=== PATIENT | female | born 1950 | race Caucasian/White ===

== ENCOUNTER 2022-02-03 03:01 | Outpatient (CLI) | payer MEDICARE, SELFPAY ==
[2022-02-03 09:47] LABS: Abs Immature Grans 0.03 10^3/uL (0.0-0.06); Absolute Eosinophil Count 0.42 10^3/uL (0.0-0.7); Absolute Monocyte Count 0.85 10^3/uL (0.1-0.8); Basophils % 1.4; Eosinophils % 3.8; HCT 50.3 % (36.0-46.0); Immature Grans % 0.3; Lymphocytes % 20.8; MCH 31.8 pg (27.0-33.0); MCHC 33.8 % (32.0-36.0); MPV 9.7 fL (8.0-11.0); Monocytes % 7.7; Platelet Count 251 10^3/uL (130-400); RBC 5.35 10^6/uL (3.93-5.22); RDW 11.9 % (11.7-14.6); RDW-SD 41.3 fL; WBC 11.04 10^3/uL (4.4-10.8)
[2022-02-03 09:50] LABS: Absolute Basophil Count 0.15 10^3/uL (0.0-0.2); Absolute Neutrophil Count 7.29 10^3/uL (1.2-6.7)
[2022-02-03 11:22] LABS: Vitamin D 25 Total 53.1 ng/mL (30-100)
[2022-02-03 11:27] LABS: ALT 47 U/L (14-59); AST 46 U/L (15-37); Albumin 3.8 g/dL (3.4-5.0); Alkaline Phosphatase 99 U/L (46-116); Anion Gap 6.6 mmol/L (3-11); BUN 12 mg/dL (7-18); Bilirubin, Total 1.4 mg/dL (0.2-1.0); CO2 31.4 mmol/L (21.0-32.0); CREATININE 0.7 mg/dL (0.55-1.02); Calcium 8.9 mg/dL (8.5-10.1); Calculated LDL 137 mg/dL (<100); Chloride 102 mmol/L (98-107); Cholesterol 232 mg/dL (<200); Glucose 103 mg/dL (74-106); HDL Cholesterol 70 mg/dL (40-60); Magnesium 1.9 mg/dL (1.8-2.4); Potassium 4.4 mmol/L (3.5-5.1); Sodium 140 mmol/L (136-145); TSH 1.99 uIU/mL (0.36-3.74); Total Protein 7.8 g/dL (6.4-8.2); Triglyceride 128 mg/dL (<150); Vitamin B12 374 pg/mL (193-986)
== END 2022-02-03 03:02 | disposition home or self-care (01) ==
LOC: LBO 03:02
PROVIDERS: Visit Provider Internal Medicine
DX: I10 Essential (primary) hypertension (principal); K74.69 Other cirrhosis of liver; E55.9 Vitamin D deficiency, unspecified
CPT/HCPCS: 36415; 80053; 80061; 82306; 82607; 83735; 84443; 85025

== ENCOUNTER 2022-02-11 13:48 | Emergency (ER) | payer MEDICARE, SELFPAY ==
[2022-02-11] VITALS (33 sets, daily range): BP systolic 161–226; BP diastolic 77–118; PULSE 92; RESP 10–28; TEMP 37.1; O2SAT 94–99
--- NOTE | 2022-02-11 13:45 | RT.EKG_ITS ---
APPROVED REPORT Exam: Resting ECG Reason for Exam: HYPERTENSION Patient Location: E HR:91 bpm ECG Measurements Heart Rate 91 AXIS NV 185 P 147 QRSd 103 QRS 62 QT 415 T 82 QTc 511 Conclusion Sinus rhythm. Probable left atrial enlargement Nonspecific ST changes Prolonged QT interval...QTc >500mS
--- NOTE | 2022-02-11 14:15 | DI.CT_ITS ---
Exam(s) CT HEAD WO EXAM: CT HEAD WO CLINICAL HISTORY: R arm and chest pain, HTN. TECHNIQUE: Imaging Protocol: Axial computed tomography images with coronal and sagittal reformatted images were created and reviewed COMPARISON: No exams were available for comparison FINDINGS: There are no skull fractures nor fluid in the visualized paranasal sinuses. There is no evidence of intracranial hemorrhage, mass effect, or shift of midline structures. There are no extra-axial fluid collections. The ventricles are not enlarged or shifted and there is no blo od within the ventricular system nor within the basal cisterns. There is calcification in the vertebral arteries noted at the skull base. IMPRESSION: No acute intracranial findings on this noninfused CT scan of the brain. Vascular calcification noted. Indicated follow-up MRI can be performed. RADIATION DOSE DELIVERED: 650.17mGy.cm Total DLP DATA REPOSITORY: All CT scans at this facility are submitted to the National Radiology Data Registry (NRDR) Dose Index Registry (DIR) with the [employer] (A[employer]). RADIATION OPTIMIZATION: All CT scans at this facility use at least one of these dose optimization te chniques: automated exposure control; mA and/or kV adjustment per patient size (includes targeted exa ms where dose is matched to clinical indication); or iterative reconstruction.
--- NOTE | 2022-02-11 14:24 | ED.GENADUL_ITS ---
Discharge Plan Disposition Patient Disposition: STILL A PATIENT Condition: Stable Discharge Details Clinical Impression: Hypertension Primary Care Provider: Unknown,Unknown ED Provider: Jewel Tucker Home Meds and New Rx's Prescriptions: Continued carvedilol 12.5 mg tablet PO BID 0RF Breo Ellipta 100-25 mcg/dose blister with device 1 inh inhalation DAILY AM 0RF ibuprofen [Advil] 200 mg Tablet 200 mg PO DAILY AM 0RF Discharge Instructions Instructions: Hypertension (ED) Additional Instructions: Our care managers will arrange a follow-up for you for recheck in clinic at the [facility]. Continue medications including carvedilol at 12.5 mg dose. Minimal salt in the diet. Continue your daily stress reduction/relaxation. Return to the emergency room for any acute concerns. Medical Decision Making This is a 71-year-old female with a history of hypertension. She is followed primarily at the [facility]. She presents today for increased blood pressure at home as well as anxiety regarding this. She had been seen by primary care and her carvedilol was increased from 6.25 to 12.5 mg per dose BID. She has now taken 2 doses of this. Blood pressures at home approximately 1 50-1 60 systolic. He also noted after cleaning her deck that she has right arm and upper chest achy discomfort. On exam the patient's blood pressure is elevated approximately 220/110. She is somewhat anxious on exam. She will note increased anxiety since moving into her [id number]'s house. Diagnosis includes anxiety, hypertension, must exclude underlying ACS or CVA. Patient referred for screening blood work or EKG, chest x-ray (which she deferred) and CT scan of the head. She is given 2.5 mg of Ativan for anxiolysis, muscle relaxant. At change of shift the patient will be signed out to the oncoming physician, Dr. Scott. Please see his note regarding details of the final impression and disposition. HPI General Mode of arrival: ambulatory . Date/Time Provider Initiated Documentation: 02/11/22 13:51 . Limitations to Documentation: no limitations . Information obtained by: patient . History of Present Illness 71 year old F presents to the emergency department with the chief complaint of Elevated blood pressure, right shoulder ache, described as moderate, Quality is described as dull and constant, and is localized to the chest, right and upper extremity. Patient reports no radiation. Patient started experiencing this day(s) and it has been intermittent. improves with No relieving factors improve symptom(s), No exacerbating factors reported . Patient notes denies chest pain, shortness of breath, syncope and weakness. Patient did receive the following treatments prior to arrival, none Related Data Home Medications Medication Instructions Recorded Confirmed carvedilol 12.5 mg tablet mg PO BID 02/11/22 fluticasone furoate 100 1 inh INHALATION DAILY AM 02/11/22 02/11/22 mcg-vilanterol 25 mcg/dose inhalation powder (Breo Ellipta) ibuprofen 200 mg tablet (Advil) 200 mg PO DAILY AM 02/11/22 02/11/22 Allergies Allergy/AdvReac Type Severity Reaction Status Date / Time acetaminophen Allergy Unknown Unverified 02/11/22 14:43 Sulfa (Sulfonamide Allergy Unknown Unverified 02/11/22 14:43 Antibiotics) General Stated Complaint: GenMedical KAREN: 2 Review of Systems Narrative: On day 2 of increase of carvedilol to 12.5 mg. No headache. No visual changes. Denies chest pain. 8 systems reviewed and otherwise negative PFSH All Active Problems (Updated 02/11/22 @ 14:55 by Jewel Tucker MD) Hypertension (Chronic) Social History Smoking/Tobacco Use Status: Current every day Tobacco Type: cigarettes Smoking risk assessment performed?: Yes Alcohol Intake: never Drug use: Never Substance use type: does not use Do you feel safe at home: Yes Do you feel safe in your relationship?: Yes Exam Narrative Exam Narrative: GEN: awake, alert, oriented 3. Pleasant, well groomed, interactive. HEAD: Normocephalic, atraumatic ENT: Mucous membranes moist, oropharynx unremarkable, External ear exam unremarkable EYES: PERRL, EOMI NECK: Full ROM, no AVELINA, no menigismus CHEST/RESP: Nontender, clear to auscultation bilateral, no wheeze/rhonchi/rales CARDIOVASCULAR: RRR, no murmur, rub levi. 2+ Rad pulse bilateral ABDOMEN: Soft, nontender, no mass. +Bowel sounds EXT: Full ROM, no edema, no rash Neuro: Grossly normal neurologic exam, conversant, interactive. Psych: Speech fluent, thoughts congruent, affect mildly anxious Course Vital Signs Vital signs: Vital Signs Temperature 37.1 C 02/11/22 13:53 Pulse 92 H 02/11/22 13:53 Respiratory Rate 16 02/11/22 13:53 Blood Pressure 226/118 H 02/11/22 13:53 Pulse Oximetry 95 02/11/22 13:53 Temperature 37.1 C 02/11/22 13:53 Pulse 92 H 02/11/22 13:53 Respiratory Rate 16 02/11/22 13:53 Blood Pressure 226/118 H 02/11/22 13:53 Blood Pressure Position Supine 02/11/22 13:53 Pulse Oximetry 95 02/11/22 13:53 Oxygen Delivery Method Room Air 02/11/22 13:53 Oxygen Flow Rate 0 02/11/22 13:53 Pain Level 0 02/11/22 13:53
[2022-02-11 14:30] LABS: Abs Immature Grans 0.04 10^3/uL (0.0-0.06); Absolute Basophil Count 0.15 10^3/uL (0.0-0.2); Absolute Eosinophil Count 0.39 10^3/uL (0.0-0.7); Absolute Lymphocyte Count 2.81 10^3/uL (1.2-3.4); Absolute Monocyte Count 0.82 10^3/uL (0.1-0.8); Basophils % 1.3; Eosinophils % 3.4; HCT 47.9 % (36.0-46.0); HGB 16.5 g/dL (11.2-15.7); Immature Grans % 0.3; Lymphocytes % 24.4; MCH 31.7 pg (27.0-33.0); MCHC 34.4 % (32.0-36.0); MCV 92 fL (80-95); MPV 9.8 fL (8.0-11.0); Monocytes % 7.1; Neutrophils % 63.5; Platelet Count 286 10^3/uL (130-400); RDW 11.9 % (11.7-14.6); RDW-SD 40.2 fL
[2022-02-11 14:52] LABS: ALT 53 U/L (14-59); AST 56 U/L (15-37); Albumin 3.8 g/dL (3.4-5.0); Alkaline Phosphatase 112 U/L (46-116); Anion Gap 9.6 mmol/L (3-11); BUN 11 mg/dL (7-18); Bilirubin, Total 0.9 mg/dL (0.2-1.0); CO2 27.4 mmol/L (21.0-32.0); CREATININE 0.7 mg/dL (0.55-1.02); Chloride 103 mmol/L (98-107); Glucose 124 mg/dL (74-106); Magnesium 2.1 mg/dL (1.8-2.4); Potassium 4.4 mmol/L (3.5-5.1); Sodium 140 mmol/L (136-145); Troponin I < 50 ng/L (<or=60)
--- NOTE | 2022-02-11 14:59 | NUR.NOTE ---
Nursing Note: PT INFO GIVEN TO CARE MANAGEMENT TO FOLLOW UP WITH PCP IN A WEEK FOR RECHECK OF KIDNEY FUNCTION. DENNISE, ED
--- NOTE | 2022-02-11 15:51 | W.EDPROG ---
Date of service: 02/11/22 Time of Service: 15:52 Medical Decision Making Resting comfortably no acute distress. No chest pain or shortness of breath. Labs and imaging unremarkable. Patient saw her primary care doctor yesterday and had her hypertensive medications adjusted, likely subtherapeutic at this time. Home care instructions and strict return precautions given for any worsening symptomatology. Specifically shortness of breath chest pain syncope headache nausea vomiting or neurologic symptoms. Patient understands and is comfortable with this plan. Sign Out Sign Out Data: Sign Out Comment: Followup Labs, CT report. Last updated by Jewel Tucker MD at 02/11/22 14:59 Discharge Plan Disposition Patient Disposition: HOME Condition: Improving Discharge Details Clinical Impression: Hypertension Primary Care Provider: Unknown,Unknown ED Provider: Henri Jackson Home Meds and New Rx's Prescriptions: Continued carvedilol 12.5 mg tablet PO BID 0RF Breo Ellipta 100-25 mcg/dose blister with device 1 inh inhalation DAILY AM 0RF ibuprofen [Advil] 200 mg Tablet 200 mg PO DAILY AM 0RF Discharge Instructions Instructions: Hypertension (ED) Additional Instructions: Our care managers will arrange a follow-up for you for recheck in clinic at the [facility]. Continue medications including carvedilol at 12.5 mg dose. Minimal salt in the diet. Continue your daily stress reduction/relaxation. Return to the emergency room for any acute concerns.
--- NOTE | 2022-02-14 10:46 | CMACTNOTE_ITS ---
- If Service Date Differs Date of service: 02/14/22 Time of Service: 10:46 Care Management Activity Note Leonarda is seen in the ED for hypertension. ED provider requests that CM help to arrange a follow up appointment for Leonarda with her PCP. A phone conversation with Leonarda reveals she has already contacted her PCP - (Mita Morales MD, at the [facility] - and scheduled a follow up appointment for February. CM discusses transfer of her care to a health center closer to [place], [place], where Leonarda is now residing, but Leonarda's preference is to continue to be seen at the [facility]
== END 2022-02-11 16:15 | disposition home or self-care (01) ==
PROVIDERS: Emergency Medicine; Emergency Provider Emergency Medicine
DX: R07.9 Chest pain, unspecified (principal); I10 Essential (primary) hypertension; M79.601 Pain in right arm
CPT/HCPCS: 36415; 80053; 93005; 99284; 70450; 83735; 84484; 85025; 93010

== ENCOUNTER 2025-03-21 08:51 | Inpatient (IN) | payer MEDICARE, SELFPAY ==
[2025-03-21] VITALS (34 sets, daily range): BP systolic 94–158; BP diastolic 38–78; PULSE 72–93; RESP 5–35; TEMP 36.2–36.6; O2SAT 82–100
--- NOTE | 2025-03-21 08:45 | RT.EKG_ITS ---
APPROVED REPORT Exam: Resting ECG Reason for Exam: Dyspnea, COPD exacerbation Patient Location: E HR:129 bpm ECG Measurements Heart Rate 129 AXIS VA [id number] P [id number] QRSd 114 QRS 65 QT 406 T 51 QTc 595 Conclusion irreg A-activity Paired ventricular premature complexes...sequence of 2 V complexes Prolonged QT interval...QTc >500mS significant artifact
[2025-03-21] MEDS: Albuterol/Ipratropium 3 ML UPD VIAL UPD ×2 (09:00→17:11)
--- NOTE | 2025-03-21 09:00 | DI.RAD_ITS ---
Exam(s) XR CHEST 2V PA LATERAL EXAM: XR CHEST 2V PA LATERAL CLINICAL HISTORY: Chest pain. TECHNIQUE: 2D digital imaging was performed. COMPARISON: No exams were available for comparison FINDINGS: 2 views: Heart size is normal. The mediastinum is not widened. No obvious infiltrates. There is a density in the right costophrenic angle which exhibits density in is probably extension the pericardiac fat pad or possibly a pericardial cyst. There is slight blunting of the right costophrenic angle which may indicate a small pleural effusion. IMPRESSION: Right cardiophrenic angle density as described above. If clinically indicated further study with CT scan can be performed. DATA REPOSITORY: RADIATION DOSE DELIVERED:
[2025-03-21 09:16] LABS: Abs Immature Grans 0.03 10^3/uL (0.0-0.06); Absolute Basophil Count 0.16 10^3/uL (0.0-0.2); Absolute Eosinophil Count 0.24 10^3/uL (0.0-0.7); Absolute Lymphocyte Count 3.75 10^3/uL (1.2-3.4); Absolute Neutrophil Count 7.95 10^3/uL (1.2-6.7); BE (Venous) 0 mmol/L (-2-3); Basophils % 1.2 %; Eosinophils % 1.8 %; HCO3 (Venous) 27 mmol/L (23-28); HCT 44.2 % (36.0-46.0); HGB 14.9 g/dL (11.2-15.7); Immature Grans % 0.2 %; Lymphocytes % 28.6 %; MCH 33.2 pg (27.0-33.0); MCHC 33.7 % (32.0-36.0); MCV 98 fL (80-95); MPV 9.7 fL (8.0-11.0); Monocytes % 7.6 %; Neutrophils % 60.6 %; O2 Sat (Venous) 64 %; Platelet Count 212 10^3/uL (130-400); RBC 4.49 10^6/uL (3.93-5.22); RDW 12.3 % (11.7-14.6); RDW-SD 44.8 fL; TCO2 (Venous) 24 mmol/L (24-29); WBC 13.12 10^3/uL (4.4-10.8); pCO2 (Venous) 54 mmHg (41-51); pO2 (Venous) 37 mmHg
--- NOTE | 2025-03-21 09:27 | W.ED.GENAD ---
Discharge Plan Disposition Patient Disposition: Admit to [facility] Condition: Serious Discharge Details Clinical Impression: Hypoxemia, Elevated troponin, Hypercarbia, ALEXIA (acute kidney injury), Acute exacerbation of chronic obstructive pulmonary disease Admit Date/Time: 03/21/25 11:55 Admit Provider: Pedro Luis Gregory Attending Provider: Pedro Luis Gregory Primary Care Provider: Mita Merlos ED Provider: Atul Peacock [facility] General Mode of arrival: EMS. Date/Time Provider Initiated Documentation: 03/21/25 08:59. Limitations to Documentation: no limitations. Information obtained by: patient. HPI Narrative: 74-year-old female smoker with history of COPD, Molina, here with shortness of breath. Patient notes developed sore throat and then cough about a week ago. Primary care ordered antibiotic which she has been taking for the past few days. Over the past few days she has had increased work of breathing. Shortness of breath is severe at times. She continues to have cough and has had fever. Cough is productive of white sputum. Patient has no chest pain but does note heaviness in her abdomen. She states that she has to stand up and lean over at times which helps with her breathing. Patient notes chronic unchanged lower extremity edema. No calf pain. Related Data Home Medications ?Medication ?Instructions ?Recorded ?Confirmed carvedilol 12.5 mg tablet 6.25 mg PO BID 02/11/22 03/21/25 fluticasone furoate 100 1 inh inhalation DAILY AM 02/11/22 03/21/25 mcg-vilanterol 25 mcg/dose inhalation powder (Breo Ellipta) doxycycline hyclate 100 mg capsule 100 mg PO BID 03/21/25 03/21/25 furosemide 20 mg tablet 20 mg PO .qotherday 03/21/25 03/21/25 spironolactone 25 mg tablet 25 mg PO .qotherday 03/21/25 03/21/25 Allergies Allergy/AdvReac Type Severity Reaction Status Date / Time acetaminophen Allergy Unknown Unverified 02/11/22 14:43 Sulfa (Sulfonamide Allergy Unknown Unverified 02/11/22 14:43 Antibiotics) General Stated Complaint: SOB KAREN: 2 Review of Systems All systems reviewed & are unremarkable except as noted in HPI and below Constitutional Constitutional: Reports fever(s) Respiratory Respiratory: Reports as per HPI Exam Const General: cooperative HENMT Mouth: moist mucous membranes Eyes Conjunctivae: normal conjunctivae Sclera: normal sclerae Neck Neck: trachea midline Resp Effort & Inspection: cough, labored, respiratory distress, tachypneic, tripod positioning and uses accessory muscles Auscultation: no rales, no rhonchi and wheezes expiratory wheezes Cardio Rate: regular rate and not tachycardic Rhythm: regular rhythm Heart Sounds: no murmurs GI Palpation: soft, not firm, no guarding, no masses, not rigid and nontender Skin General skin exam: no rashes or lesions noted Neuro General: patient alert, patient awake and tone normal Extrem General: no calf tenderness and edema (1+, non pitting) Laterality: bilateral Psych Appearance: grossly normal Mental Status: mental status grossly normal Course Vital Signs Vital signs: Vital Signs Pulse 76 03/21/25 08:53 Respiratory Rate 24 03/21/25 08:53 Pulse Oximetry 82 L 03/21/25 08:53 Pulse 83 03/21/25 09:21 Respiratory Rate 24 03/21/25 09:21 Respiratory Effort Short of Breath 03/21/25 09:16 Respiratory Depth Deep 03/21/25 09:16 Respiratory Pattern Normal 03/21/25 09:16 Pulse Oximetry 92 03/21/25 09:22 Oxygen Delivery Method Room Air 03/21/25 09:22 Oxygen Flow Rate 0 03/21/25 09:22 Lab/Test Results Lab/Test Results: 03/21/25 09:21 Blood Blood Culture - Pending 03/21/25 09:21 Blood Blood Culture - Pending Laboratory Tests Range/Units 03/21/25 09:09 WBC (4.4-10.8) 10^3/uL 13.12 H RBC (3.93-5.22) 10^6/uL 4.49 Hgb (11.2-15.7) g/dL 14.9 Hct (36.0-46.0) % 44.2 MCV (80-95) fL 98 H MCH (27.0-33.0) pg 33.2 H MCHC (32.0-36.0) % 33.7 RDW (11.7-14.6) % 12.3 Plt Count (130-400) 10^3/uL 212 MPV (8.0-11.0) fL 9.7 Immature Gran % % 0.2 Neutrophils % % 60.6 Lymphocytes % % 28.6 Monocytes % % 7.6 Eosinophils % % 1.8 Basophils % % 1.2 Nucleated RBC % (0.0-0.3) % 0.0 Absolute Neutrophils (1.2-6.7) 10^3/uL 7.95 H Absolute Lymphocytes (1.2-3.4) 10^3/uL 3.75 H Absolute Monocytes (0.1-0.8) 10^3/uL 1.00 H Absolute Eosinophils (0.0-0.7) 10^3/uL 0.24 Absolute Basophils (0.0-0.2) 10^3/uL 0.16 VBG pH (7.31-7.41) 7.30 L VBG pCO2 (41-51) mmHg 54 H VBG pO2 mmHg 37 VBG HCO3 (23-28) mmol/L 27 VBG Total CO2 (24-29) mmol/L 24 VBG O2 Saturation % 64 VBG Base Excess (-2-3) mmol/L 0 Medical Decision Making 936??74-year-old female with history of COPD, Molina, here with shortness of breath, productive cough over the past week, refractory to oral antibiotic, also with abdominal tightness. Patient hypoxic saturating in the low 80s on 2 L on arrival. Patient received 2 DuoNeb treatments as well as Solu-Medrol 125 mg prior to arrival by EMS. Suspect acute COPD exacerbation with potential pneumonia versus viral respiratory infection. Patient is normotensive and not tachycardic. She is in respiratory distress with tachypnea, tripoding, bilateral wheeze. Plan to give another DuoNeb treatment. Respiratory therapy has been consulted. Initial labs including VBG concerning for respiratory acidosis. Plan to support respiratory function, discussed BiPAP with the patient and she notes she is feeling a bit better and declines at this time. Fluvid testing pending. Chest x-ray pending. I am concerned the patient's liver disease may be contributing to her presentation today. I will check LFTs. Consider CHF and will check BNP. 1035 --family here and additional history obtained: Patient was on Augmentin but did not tolerate and was switched to doxycycline which she has been taking over the past few days without relief. EKG was reviewed and interpreted by me: Please report, significant artifact, appears to be normal sinus rhythm. No STEMI. Labs reviewed and leukocytosis noted. ALEXIA noted with creatinine doubling to 1.4. Initial troponin negative. Delta troponin elevated at 77. BNP normal. Consider NSTEMI. Troponin should be trended. I will give aspirin 325 mg. 1109 --chest x-ray interpreted by radiology: Right cardiophrenic angle density as described above. If clinically indicated further study with CT scan can be performed. Plan to proceed to CT of the chest. I have initiated empiric treatment with ceftriaxone IV. --Patient reassessed and much improved. I suspect Solu-Medrol improving symptoms. -- I spoke with hospitalist on-call, Harper Heaton, discussed ED presentation and course, she will admit the patient. She understands CT pending at time of admission. Care transitioned to hospitalist team at time of admission. Lab Data Lab results reviewed: Yes I reviewed the patient's lab results. PFSH All Active Problems (Updated 03/21/25 @ 14:00 by Atul Peacock MD) Acute exacerbation of chronic obstructive pulmonary disease (Acute) ALEXIA (acute kidney injury) (Acute) Hypercarbia (Acute) Elevated troponin (Acute) Hypoxemia (Acute) Severe sepsis (Acute) Discharge planning issues (Acute) On deep vein thrombosis (DVT) prophylaxis (Acute) Community acquired pneumonia (Acute) ALEXIA (acute kidney injury) (Acute) Elevated troponin (Acute) COPD (chronic obstructive pulmonary disease) (Chronic) Acute on chronic hypoxic respiratory failure (Acute) Social History Smoking/Tobacco Use Status: Current every day Tobacco Type: cigarettes Smoking risk assessment performed?: Yes Alcohol Intake: never Drug use: Never Substance use type: does not use Housing: house Do you feel safe at home: Yes Do you feel safe in your relationship?: Yes
[2025-03-21 09:37] LABS: ALT 38 U/L (14-59); AST 63 U/L (15-37); Albumin 3.3 g/dL (3.4-5.0); Alkaline Phosphatase 92 U/L (46-116); Anion Gap 6.4 mmol/L (3-11); BUN 24 mg/dL (7-18); Bilirubin, Total 3.5 mg/dL (0.2-1.0); CO2 29.6 mmol/L (21.0-32.0); CREATININE 1.4 mg/dL (0.55-1.02); Calcium 9.2 mg/dL (8.5-10.1); Chloride 102 mmol/L (98-107); Estimated GFR 38.99 (mL/min/1.73m2); Glucose 133 mg/dL (74-106); Potassium 4.9 mmol/L (3.5-5.1); Sodium 138 mmol/L (136-145); Total Protein 7.6 g/dL (6.4-8.2); Troponin I 16 ng/L (<or=51)
[2025-03-21 10:25] LABS: Lactate 2.1 mmol/L (<or=2.0)
[2025-03-21 10:28] LABS: COVID-19 PCR Negative (Negative); Influenza A PCR Negative (Negative); Influenza B PCR Negative (Negative); RSV PCR Negative (Negative)
[2025-03-21 10:30] LABS: Source Nasopharynx
[2025-03-21] MEDS: cefTRIAXone 2 GM/50 ML BAG IVPB (10:45)
[2025-03-21 10:59] LABS: NT-proBNP 171 pg/mL (<300)
[2025-03-21 11:07] LABS: Troponin I 77 ng/L (<or=51)
[2025-03-21] MEDS: Aspirin 325 MG TAB PO (11:46)
[2025-03-21] MEDS: Lactated Ringers 500 ML IV (11:46)
--- NOTE | 2025-03-21 11:58 | W.PM.HP.N ---
Date of service: 03/21/25 Time of Service: 11:58 Assessment and Plan Assessment and plan (1) Severe sepsis: Status: Acute Assessment and plan: WBC 13, RR 23-26 Source respiratory Lactic 2.1 On ceftriaxone and azithromycin Blood Cx pending (2) Community acquired pneumonia: Status: Acute Assessment and plan: Was on Augmentin then doxycycline and seems to have failed Tx Mucinex, benzonatate, nebs and as above (3) Acute hypoxic respiratory failure: Status: Acute Assessment and plan: Not on home oxygen but EMS initiated O2 for sat in the mid 80's Wean O2 as tolerated for sat 88-92% in the setting of CAP and Hx of COPD- whichis most likely exacerbated- methylprednisolone to oral prednisone in AM (4) Elevated troponin: Status: Acute Assessment and plan: troponin:16, 77 at 1 hour , 182 at 3 hour,- next due at 15:00 delayed [facility] [place] cardiology consult with Calli Padron LIBRARY PAGE- ok with 15:00 trop - if less 200 - will qualify as NSTEMI type II as the patient remains asymptomatic Serial EKG's negative troponin at 17:00 was 521- EKG faxed to [facility] [place] Reorder for 18:00 2nd Call return to cardiology: Discussion w Dr. León --If Delta at 1 hour < than 1000 and not symptomatic - will not trend further- 1800 troponin 619 -Posterior EKG (#4) d/t artifact in second EKG - 3rd EKG negative -MPI on monday -ASA 81 mg -Statin outpatient decision in the setting of DE LA FUENTE with cirrhosis - No Plavix , no heparin drip (5) ALEXIA (acute kidney injury): Status: Acute Assessment and plan: Cr 1.5 - Records obatined from outpatient provider Cr baseline around 1.4- NOT in ALEXIA but CKD Stage III LR bolus 500 ml in ED LR at 50 cc/hr - Not started and discontinued (6) COPD (chronic obstructive pulmonary disease): Status: Chronic Assessment and plan: on home medicine (7) On deep vein thrombosis (DVT) prophylaxis: Status: Acute Assessment and plan: On LMWH (8) Discharge planning issues: Status: Acute Assessment and plan: Home when medically stable HH PT as per recommendation Discussed with Dr. Gregory History of Present Illness History of Present Illness Chief Complaint: increased SOB Narrative: This 74-year-old female patient with a PMHx of 96 pack year nicotine dependence, non- oxygen dependent COPD w/o official PFT, SUDHAKAR presented today to the ED via EMS for evaluation of worsening shortness of breath s/p failed outpatient treatment for pneumonia with Augmentin and then with doxycycline. Oxygen at 4 l/min initiated by EMS d/t sat in the low 80's. Workup in the ED was positive for leukocytosis at 13, VBG lactate of of 2.1, Cr 1.5, totl bili 3.5 with available previous Cr 0.7 and total bilirubin 0.9 in 2021. Troponin #1 was 16 then #2 at 77 with 3rd pending, with negative EKG for ACS or ischemia. VBG 7.30/54/27/37 with VBG sat 64. CXR showed right costophrenic angle density most likely an extension of the pericardiac fat pad VS possibly a pericardial cyst; with slight blunting of the right costophrenic angle which may indicate a small pleural effusion. BNP was negative but ongoing LLE pitting edema > RLE . In the ED the patient was treated with nebulizers, LR bolus 500 cc, ceftriaxone with pending blood cultures. The patient was admitted to the medical surgical floor by the hospitalist team for severe sepsis, acute hypoxic respiratory failure, ALEXIA, failed outpatient CAP treatment. CT VS CTA chest abdomen and pelvis pending. Full code status confirmed when seen in DI; the patient had no further oxygen requirement at the time. The patient reported increased shortness of breath,nausea, feeling cold w/o objective fever, smoking from age 10 now 1.5 pack a day, worsening chronic LE's edema; denied chest pain, dizziness, change in sputum quantity or color but was coughing more earlier, denied vomiting. Reported sensitivity to valium and oxycodone , not taking acetaminophen re: DE LA FUENTE history. Denied history of NM, cardiac valve problem, aneurysm, stroke, GIB. She is not a candidate for right hip replacement. Requested records from her outpatient provider's office. Review of Systems All systems reviewed & are unremarkable except as noted in HPI and below PFSH All Active Problems (Updated 03/21/25 @ 15:07 by Harper Lai APRN) Acute hypoxic respiratory failure (Acute) Acute exacerbation of chronic obstructive pulmonary disease (Acute) ALEXIA (acute kidney injury) (Acute) Hypercarbia (Acute) Elevated troponin (Acute) Hypoxemia (Acute) Severe sepsis (Acute) Discharge planning issues (Acute) On deep vein thrombosis (DVT) prophylaxis (Acute) Community acquired pneumonia (Acute) ALEXIA (acute kidney injury) (Acute) Elevated troponin (Acute) COPD (chronic obstructive pulmonary disease) (Chronic) Acute on chronic hypoxic respiratory failure (Acute) Social History Smoking/Tobacco Use Status: Current every day Tobacco Type: cigarettes Smoking risk assessment performed?: Yes Alcohol Intake: never Drug use: Never Substance use type: does not use Housing: house Do you feel safe at home: Yes Do you feel safe in your relationship?: Yes Meds Allergies and Home Medications Allergies Allergy/AdvReac Type Severity Reaction Status Date / Time acetaminophen Allergy Unknown Unverified 02/11/22 14:43 Sulfa (Sulfonamide Allergy Unknown Unverified 02/11/22 14:43 Antibiotics) Home Medications ?Medication ?Instructions ?Recorded ?Confirmed ?Type carvedilol 12.5 mg tablet 6.25 mg PO BID 02/11/22 03/21/25 History fluticasone furoate 100 1 inh inhalation DAILY AM 02/11/22 03/21/25 History mcg-vilanterol 25 mcg/dose inhalation powder (Breo Ellipta) doxycycline hyclate 100 mg capsule 100 mg PO BID 03/21/25 03/21/25 History furosemide 20 mg tablet 20 mg PO .qotherday 03/21/25 03/21/25 History spironolactone 25 mg tablet 25 mg PO .qotherday 03/21/25 03/21/25 History Exam Narrative Exam Narrative: 74 years old female patient looking older than stated age, alert and oriented X4, no focal neuro deficit, diffused mild expiratory wheezing bilaterally, mild accessory muscle use, S1, S2, no murmur, + LE pitting edema L> R, abd is not distended, soft and non-tender Results Labs 03/21/25 09:09 03/21/25 09:09 Labs: Laboratory Results - last 24 hr 03/21/25 03/21/25 03/21/25 09:09 09:35 10:16 WBC 13.12 H RBC 4.49 Hgb 14.9 Hct 44.2 MCV 98 H MCH 33.2 H MCHC 33.7 RDW 12.3 Plt Count 212 MPV 9.7 Immature Gran % 0.2 Neutrophils % 60.6 Lymphocytes % 28.6 Monocytes % 7.6 Eosinophils % 1.8 Basophils % 1.2 Nucleated RBC % 0.0 Absolute Neutrophils 7.95 H Absolute Lymphocytes 3.75 H Absolute Monocytes 1.00 H Absolute Eosinophils 0.24 Absolute Basophils 0.16 VBG pH 7.30 L VBG pCO2 54 H VBG pO2 37 VBG HCO3 27 VBG Total CO2 24 VBG O2 Saturation 64 VBG Base Excess 0 VBG Lactate 2.1 Sodium 138 Potassium 4.9 Chloride 102 Carbon Dioxide 29.6 Anion Gap 6.4 BUN 24 H Creatinine 1.4 H Est GFR (CKD-EPI 2020) 38.99 Glucose 133 H Calcium 9.2 Total Bilirubin 3.5 H AST 63 H ALT 38 Alkaline Phosphatase 92 Troponin I 16 77 H* NT-Pro-B Natriuret Pep 171 Total Protein 7.6 Albumin 3.3 L COVID-19 Source Nasopharynx SARS-CoV-2 (PCR) Negative Influenza Type A (PCR) Negative Influenza Type B (PCR) Negative RSV (PCR) Negative Last Vital Signs Pulse 76 03/21/25 11:31 Resp 17 03/21/25 11:21 BP 94/38 L 03/21/25 11:31 Pulse Ox 95 03/21/25 11:30 Time Spent Time spent with Patient: >75 minutes Time was spent: preparing to see the patient(eg.review tests), obtaining and/or reviewing separately otained hiistory, ordering medications,tests, procedures, referring, communicating with other health rn primary care, indepentently interpreting results, counseling the patient and care coordination
[2025-03-21] MEDS: Normal Saline - Diluent 50 ML VIAL IJ (12:05)
--- NOTE | 2025-03-21 12:09 | W.PC.ACHO ---
Registration Status: REG ER Primary Language: Preferred Language: ED Information & Data Chief Complaint SOB 03/21/25 10:42 Chief Complaint SOB 03/21/25 09:31 Triage Note CP, increased WOB x3day 03/21/25 08:53 worse this AM, diaphoretic, tripod breathing was Dx with URI last week. given 125 solumed, x2 duonebs Most Recent Vital Signs Pulse 76 03/21/25 11:31 Pulse 77 03/21/25 10:20 Respiratory Rate 17 03/21/25 11:21 Respiratory Effort Short of Breath 03/21/25 09:16 Respiratory Depth Deep 03/21/25 09:16 Respiratory Pattern Normal 03/21/25 09:16 Blood Pressure 94/38 L 03/21/25 11:31 Blood Pressure Mean 51 03/21/25 11:31 Pulse Oximetry 95 03/21/25 11:30 Oxygen Delivery Method Room Air 03/21/25 09:22 Oxygen Flow Rate 0 03/21/25 09:22 Allergies acetaminophen Allergy (Unknown, Unverified 02/11/22 14:43) Sulfa (Sulfonamide Antibiotics) Allergy (Unknown, Unverified 02/11/22 14:43) Precautions Isolation Standard precaution 03/21/25 10:42 Active Medications Generic Name Dose Route Start Last Admin Trade Name Freq PRN Reason Stop Dose Admin Ringer's Solution 500 mls @ 500 mls/hr 03/21/25 11:31 03/21/25 11:46 IV 03/21/25 12:30 500 mls/hr BOLUS ONE Administration Sodium Chloride 50 ml 03/21/25 12:15 03/21/25 12:05 Normal Saline - Diluent 50 Ml Vial IJ 50 ml .FOR DI USE NASIM Administration IV IV Catheter Type [Left Saline Lock Antecubital] IV Catheter Gauge [Left 20 Antecubital] Diagnostics 03/21/25 03/21/25 03/21/25 Range/Units 12:01 10:16 09:35 WBC (4.4-10.8) 10^3/uL RBC (3.93-5.22) 10^6/uL Hgb (11.2-15.7) g/dL Hct (36.0-46.0) % MCV (80-95) fL MCH (27.0-33.0) pg MCHC (32.0-36.0) % RDW (11.7-14.6) % Plt Count (130-400) 10^3/uL MPV (8.0-11.0) fL Immature Gran % % Neutrophils % % Lymphocytes % % Monocytes % % Eosinophils % % Basophils % % Nucleated RBC % (0.0-0.3) % Absolute Neutrophils (1.2-6.7) 10^3/uL Absolute Lymphocytes (1.2-3.4) 10^3/uL Absolute Monocytes (0.1-0.8) 10^3/uL Absolute Eosinophils (0.0-0.7) 10^3/uL Absolute Basophils (0.0-0.2) 10^3/uL VBG pH (7.31-7.41) VBG pCO2 (41-51) mmHg VBG pO2 mmHg VBG HCO3 (23-28) mmol/L VBG Total CO2 (24-29) mmol/L VBG O2 Saturation % VBG Base Excess (-2-3) mmol/L VBG Lactate 2.1 (<or=2.0) mmol/L Sodium (136-145) mmol/L Potassium (3.5-5.1) mmol/L Chloride (98-107) mmol/L Carbon Dioxide (21.0-32.0) mmol/L Anion Gap (3-11) mmol/L BUN (7-18) mg/dL Creatinine (0.55-1.02) mg/dL Est GFR (CKD-EPI 2020) (mL/min/1.73m2) Glucose (74-106) mg/dL Calcium (8.5-10.1) mg/dL Total Bilirubin (0.2-1.0) mg/dL AST (15-37) U/L ALT (14-59) U/L Alkaline Phosphatase (46-116) U/L Troponin I Pending 77 H* (<or=51) ng/L NT-Pro-B Natriuret Pep 171 (<300) pg/mL Total Protein (6.4-8.2) g/dL Albumin (3.4-5.0) g/dL COVID-19 Source Nasopharynx SARS-CoV-2 (PCR) Negative (Negative) Influenza Type A (PCR) Negative (Negative) Influenza Type B (PCR) Negative (Negative) RSV (PCR) Negative (Negative) 03/21/25 Range/Units 09:09 WBC 13.12 H (4.4-10.8) 10^3/uL RBC 4.49 (3.93-5.22) 10^6/uL Hgb 14.9 (11.2-15.7) g/dL Hct 44.2 (36.0-46.0) % MCV 98 H (80-95) fL MCH 33.2 H (27.0-33.0) pg MCHC 33.7 (32.0-36.0) % RDW 12.3 (11.7-14.6) % Plt Count 212 (130-400) 10^3/uL MPV 9.7 (8.0-11.0) fL Immature Gran % 0.2 % Neutrophils % 60.6 % Lymphocytes % 28.6 % Monocytes % 7.6 % Eosinophils % 1.8 % Basophils % 1.2 % Nucleated RBC % 0.0 (0.0-0.3) % Absolute Neutrophils 7.95 H (1.2-6.7) 10^3/uL Absolute Lymphocytes 3.75 H (1.2-3.4) 10^3/uL Absolute Monocytes 1.00 H (0.1-0.8) 10^3/uL Absolute Eosinophils 0.24 (0.0-0.7) 10^3/uL Absolute Basophils 0.16 (0.0-0.2) 10^3/uL VBG pH 7.30 L (7.31-7.41) VBG pCO2 54 H (41-51) mmHg VBG pO2 37 mmHg VBG HCO3 27 (23-28) mmol/L VBG Total CO2 24 (24-29) mmol/L VBG O2 Saturation 64 % VBG Base Excess 0 (-2-3) mmol/L VBG Lactate (<or=2.0) mmol/L Sodium 138 (136-145) mmol/L Potassium 4.9 (3.5-5.1) mmol/L Chloride 102 (98-107) mmol/L Carbon Dioxide 29.6 (21.0-32.0) mmol/L Anion Gap 6.4 (3-11) mmol/L BUN 24 H (7-18) mg/dL Creatinine 1.4 H (0.55-1.02) mg/dL Est GFR (CKD-EPI 2021) 38.99 (mL/min/1.73m2) Glucose 133 H (74-106) mg/dL Calcium 9.2 (8.5-10.1) mg/dL Total Bilirubin 3.5 H (0.2-1.0) mg/dL AST 63 H (15-37) U/L ALT 38 (14-59) U/L Alkaline Phosphatase 92 (46-116) U/L Troponin I 16 (<or=51) ng/L NT-Pro-B Natriuret Pep (<300) pg/mL Total Protein 7.6 (6.4-8.2) g/dL Albumin 3.3 L (3.4-5.0) g/dL COVID-19 Source SARS-CoV-2 (PCR) (Negative) Influenza Type A (PCR) (Negative) Influenza Type B (PCR) (Negative) RSV (PCR) (Negative) 03/21/25 09:21 Blood Culture - Pending Blood 03/21/25 09:21 Blood Culture - Pending Blood Intake and Output - 24 Hour Total 03/21/25 08:45 thru 03/21/25 11:46 Intake Total 60 Balance 60 Weight 80.921 kg Intake: IV 60 Falls Risk Assessment History of Falls No History 03/21/25 10:44 Fall Total Score 0 03/21/25 10:44 Level of Risk Standard/Low Risk 03/21/25 10:44 v v v v v v v v v Sending and/or Receiving Nurses: Please use comment section below to note any information pertinent to the patient hand-off not included above. Information / Comments: Report received from: Called ED at 1205 report received from Nurse Osborne. Patient admitted for severe sepsis, pt with couple of days with increase SOB, sat around 80, improved at ED. RA at this time, no distress, no PRN for apin given. RN will draw next troponins and will be bringing patient up
[2025-03-21] MEDS: Omnipaque 350 MG/ML 500 ML BTL-Imaging package 75 ML IJ (12:10)
--- NOTE | 2025-03-21 12:14 | DI.CT_ITS ---
Exam(s) CT CHEST PE ABD PELVIS W EXAM: CT CHEST PE ABD PELVIS W CLINICAL HISTORY: shortness of breath, abd pain, cxr finding. TECHNIQUE: Imaging Protocol: Axial CT angiography was performed with multi- slice acquisition and multi-planar and/or 3D reconstructions. CONTRAST MATERIAL: Intravenous: Omnipaque 350 Contrast volume:75 Oral: None COMPARISON: No exams were available for comparison FINDINGS: CHEST: PULMONARY ARTERIES: There are no intra-arterial filling defects to suggest the presence of acute pulmonary emboli. LUNGS: There is no evidence of pulmonary infarction.No significant infiltrates there are no pleural effusions. MEDIASTINUM: There is no hilar nor mediastinal adenopathy. Visualized thyroid unremarkable. CARDIAC: Heart size is normal. There is no pericardial effusion. There is no significant shift of the interventricular septum.Caliber of the thoracic aorta is within normal limits. OSSEOUS: No significant osseous lesions.. ABDOMEN: There is no ascites. LIVER: Liver exhibits cirrhotic appearance nodularity and enlargement of the caudate lobe. There are no discrete focal hepatic lesions. No dilated intrahepatic ducts. GALLBLADDER/BILIARY: No obvious gallbladder pathology. CBD is not dilated. PANCREAS: No evidence of pancreatic mass nor dilatation of the pancreatic duct. SPLEEN: Spleen is not enlarged. There are no intrasplenic lesions. Splenic and portal veins are patent. ADRENALS: There are no significant adrenal masses. KIDNEYS:There is a benign cyst in the medial cortex of the right kidney which measures 2.5 cm and a slightly smaller cyst in the lateral cortex of the right kidney, both not requiring further workup. Two small cortical cyst in the opposite-left kidney measuring up to 1.5 cm noted also not requiring further workup. There are no solid renal masses. No calculi. No hydronephrosis. No hydroureter.. ABDOMINAL AORTA: The abdominal aorta is calcified but not enlarged. The common iliac arteries also calcified but not enlarged. LYMPH NODES: There is no retroperitoneal or para-aortic adenopathy. ABDOMINAL WALL/GI: There is some skin thickening over the pannus with mild subjacent fat stranding, consistent with cellulitis. There is no subcutaneous drainable fluid collection. No evidence of significant anterior abdominal hernia. No bowel obstruction or free air. PELVIS: LYMPH NODES: There is no intrapelvic nor inguinal adenopathy. GI: Appendix is retrocecal. No evidence of appendicitis.No evidence of sigmoid diverticulitis nor diverticulitis elsewhere in the large bowel. No colitis pattern. URINARY BLADDER: No calculi nor masses evident REPRODUCTIVE: There are tubal ligation clips bilaterally. No ovarian masses nor free fluid in the pelvis. The endometrium appears slightly thickened for this age group. Should be further studied with ultrasound. 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 Multilevel chronic degenerative disc disease. No listhesis. Multilevel facet arthropathy. No fractures. IMPRESSION: 1. No evidence of acute pulmonary emboli nor pulmonary infarction. No acute pulmonary findings. No pleural effusions. 2. Cirrhotic appearing liver. No neoplastic appearing liver masses. No ascites. 3. There is some skin thickening and subcutaneous edema over the anterior aspect of the pannus. May indicate cellulitis. There is no drainable fluid collection in the subcutaneous fat. No significant anterior abdominal wall hernias. 4. No evidence of appendicitis nor diverticulitis. 5. Thickened endometrium. Should be further studied with ultrasound to rule out endometrial neoplasm. No abnormal adnexal findings. Bilateral tubal ligation clips. 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 Left hip unremarkable. Patient has apparently been admitted to [facility]. RADIATION DOSE DELIVERED: 465.79mGy.cm Total DLP DATA REPOSITORY: All CT scans at this facility are submitted to the National Radiology Data Registry (NRDR) Dose Index Registry (DIR) with the [employer] (ACR). RADIATION OPTIMIZATION: All CT scans at this facility use at least one of these dose optimization techniques: automated exposure control; mA and/or kV adjustment per patient size (includes targeted exams where dose is matched to clinical indication); or iterative reconstruction.
[2025-03-21 12:49] LABS: Troponin I 182 ng/L (<or=51)
--- NOTE | 2025-03-21 13:12 | PHA.REVIEW2 ---
Pharmacy Admission Review Admission Clinical Review Admission Pharmacy Review: Severe sepsis (Acute) Discharge planning issues (Acute) On deep vein thrombosis (DVT) prophylaxis (Acute) Community acquired pneumonia (Acute) ALEXIA (acute kidney injury) (Acute) Elevated troponin (Acute) Acute on chronic hypoxic respiratory failure (Acute) acetaminophen Allergy (Unknown, Unverified 02/11/22 14:43) Sulfa (Sulfonamide Antibiotics) Allergy (Unknown, Unverified 02/11/22 14:43) Resuscitation Status Full Code Height 5 ft 1 in Weight 80.921 kg Comments Comments/Follow Ups: Watch VS, SCr, labs, for culture results and for med changes (antibiotic orders, possible renal dose adjustments, home meds) Pharmacy Admission Review Renal Dosing Renal Dosing: BUN 24 mg/dL (7-18) H 03/21/25 09:09 Creatinine 1.4 mg/dL (0.55-1.02) H 03/21/25 09:09 Medications needing adjustments: Reviewed (Crcl ~33 mL/min current meds are okay) Anticoagulation Anticoagulation: Hgb 14.9 g/dL (11.2-15.7) 03/21/25 09:09 Hct 44.2 % (36.0-46.0) 03/21/25 09:09 Plt Count 212 10^3/uL (130-400) 03/21/25 09:09 Creatinine 1.4 mg/dL (0.55-1.02) H 03/21/25 09:09 DVT Prophylaxis: Reviewed Medications: Enoxaparin Opiate Usage Evaluate Pain Scale/Pains Meds: N/A Relevant Labs Relevant Labs: Sodium 138 mmol/L (136-145) 03/21/25 09:09 Potassium 4.9 mmol/L (3.5-5.1) 03/21/25 09:09 Chloride 102 mmol/L (98-107) 03/21/25 09:09 Electrolytes, C-Reactive P, ESR: Reviewed DM Control DM Control: Glucose 133 mg/dL (74-106) H 03/21/25 09:09 DM Control: Reviewed (No DM noted it pt's medical history, no A1c on file.) Cardiac Review Cardiac Review: Troponin I 182 ng/L (<or=51) H* 03/21/25 12:17 NT-Pro-B Natriuret Pep 171 pg/mL (<300) 03/21/25 10:16 BP, HR, EF%: Reviewed (BP and HR have been within normal limits most of admission so far) QTc Review QTc: N/A IV to PO Switch IV Medications: Reviewed Home Meds Home Med List reviewed: Reviewed Relevent Home Meds Not ordered & why?: doxycycline (has other antibiotics ordered), fluticasone/vilanterol (has budesonide/formoterol subbed for this), furosemide, spironolactone Current Meds Current Medication Order Review: Reviewed Pharmacy Antibiotic Review Pharmacy Antibiotic Activity: C/S review and Reviewed, no change Comments: Blood cultures are pending, patient given a dose of ceftriaxone in ED and a dose of azithromycin on admission. H&P mentions continuing ceftriaxone and azithromycin, watch for orders. Comments Comments/Follow Ups: Watch VS, SCr, labs, for culture results and for med changes (antibiotic orders, possible renal dose adjustments, home meds)
[2025-03-21] MEDS: AZITHROMYCIN 500 MG in Normal Saline 250 ML 250 MG IVPB (13:34)
[2025-03-21] MEDS: Enoxaparin 40 MG/0.4 ML SYR SC (13:35)
[2025-03-21] MEDS: guaiFENesin 600 MG TABCR PO ×2 (13:36→20:21)
[2025-03-21] MEDS: Benzonatate 100 MG CAP PO ×2 (13:36→20:21)
[2025-03-21] MEDS: Normal Saline Flush 10 ML SYR IVP ×2 (13:36→20:22)
--- NOTE | 2025-03-21 13:45 | RT.EKG_ITS ---
APPROVED REPORT Exam: Resting ECG Reason for Exam: elevated trop Patient Location: I HR:87 bpm ECG Measurements Heart Rate 87 AXIS SD 158 P 65 QRSd 182 QRS 60 QT 436 T 49 QTc 525 Conclusion Sinus rhythm...normal P axis, V-rate 50- 99 Baseline artifact, otherwise normal
[2025-03-21 17:30] LABS: Troponin I 521 ng/L (<or=51)
--- NOTE | 2025-03-21 17:30 | RT.EKG_ITS ---
APPROVED REPORT Exam: Resting ECG Reason for Exam: troponin elevation Patient Location: I HR:84 bpm ECG Measurements Heart Rate 84 AXIS TN 135 P 56 QRSd 94 QRS 68 QT 417 T 60 QTc 493 Conclusion Sinus rhythm...normal P axis, V-rate 50- 99
--- NOTE | 2025-03-21 17:50 | NUR.NOTE ---
Nursing Note: 1731 received elevated troponin at 521, Harper Ming notified via webex, STAT EKG orders received, Troponin levels will be repeated at 1800. VSS stable, patient report no distress, no chest pain, no nausea, noted pursed lip breathing, patient states its at baseline, able to complete sentences, tolerating PO intake, visiting with family.
[2025-03-21 18:41] LABS: Troponin I 619 ng/L (<or=51)
[2025-03-21] MEDS: Budesonide/Formoterol 80/4.5 6.9 GM 60 PUFF INH IH (20:01)
[2025-03-21] MEDS: Carvedilol 6.25 MG TAB PO (20:21)
[2025-03-22] VITALS (17 sets, daily range): BP systolic 104–141; BP diastolic 49–84; PULSE 64–91; RESP 2–19; TEMP 36.1–36.4; O2SAT 89–97
[2025-03-22] MEDS: Albuterol/Ipratropium 3 ML UPD VIAL UPD ×5 (00:25→23:55)
[2025-03-22 06:37] LABS: HCT 39.4 % (36.0-46.0); HGB 13.9 g/dL (11.2-15.7); MCH 34.2 pg (27.0-33.0); MCHC 35.3 % (32.0-36.0); MCV 97 fL (80-95); MPV 9.9 fL (8.0-11.0); Platelet Count 189 10^3/uL (130-400); RBC 4.07 10^6/uL (3.93-5.22); RDW 12.2 % (11.7-14.6); RDW-SD 43.7 fL; WBC 17.93 10^3/uL (4.4-10.8)
[2025-03-22 06:47] LABS: Anion Gap 8.9 mmol/L (3-11); BUN 28 mg/dL (7-18); CO2 26.1 mmol/L (21.0-32.0); CREATININE 1.3 mg/dL (0.55-1.02); Chloride 105 mmol/L (98-107); Estimated GFR 42.62 (mL/min/1.73m2); Glucose 125 mg/dL (74-106); Magnesium 1.6 mg/dL (1.8-2.4); Potassium 4.7 mmol/L (3.5-5.1); Sodium 140 mmol/L (136-145)
[2025-03-22] MEDS: Nicotine 21 MG/24 HR PATCH TD (07:54)
[2025-03-22] MEDS: Furosemide 20 MG TAB PO (07:56)
[2025-03-22] MEDS: Spironolactone 25 MG TAB PO (07:56)
[2025-03-22] MEDS: Benzonatate 100 MG CAP PO ×3 (07:56→20:49)
[2025-03-22] MEDS: Carvedilol 6.25 MG TAB PO ×2 (07:56→20:50)
[2025-03-22] MEDS: Normal Saline Flush 10 ML SYR IVP ×2 (07:56→20:50)
[2025-03-22] MEDS: Aspirin E.C. 81 MG TABEC PO (07:56)
[2025-03-22] MEDS: guaiFENesin 600 MG TABCR PO ×2 (07:57→20:50)
[2025-03-22] MEDS: predniSONE 20 MG TAB 40 MG PO (07:57)
[2025-03-22] MEDS: Budesonide/Formoterol 80/4.5 6.9 GM 60 PUFF INH IH ×2 (08:49→20:08)
[2025-03-22] MEDS: MAGNESIUM SULFATE 1 GM/100 ML BAG IV_INF (09:29)
[2025-03-22 10:21] LABS: Procalcitonin < 0.10 ng/mL
--- NOTE | 2025-03-22 10:29 | INITIAL_ITS ---
Date of service: 03/22/25 Time of Service: 10:29 Care Management Initial Assmt Initial Assessment Reason for Hospitalization: Acute on Chronic Hyposic resp Fail. Severe sepsis Functional Status/Living Situation Patient Presentation: Leonarda was lying in her bed and visiting with family, when CM arrived. Leonarda presented to the ED yesterday for an evaluation for SOB. Leonarda is living in [place], with her - Geronimo. She reports, she moved her from [facility], which is near [facility], about 4 years ago. Leonarda states, she has a son that lives there still and acts as a good support. Leonarda would like more support within her home; She states it is difficult for her to ask/accept help but with her permission, CM sent referrals to [facility] and [facility] for an increase in community supports. Leonarda reports that she is motivate to quit smoking, CM provided her with 802 quits information; Leonarda has been smoking since she was 18 years old. Per report, she will recieve a stress test on Monday, but is not followed by any specialist outpatient. CM will continue to follow. Town of Residence: [place] Resides with: Spouse Significant Other/Family: Out of area ([facility] - Son and his partner) Natural Supports: Son - Venkata Employment Status: Retired Instrumental Activities of Daily Living (ADLs): Independent Activities/Hobbies/SocialSupport: Competitively drag raced for 5 years, in her youth. She still enjoys to go for drives. Medications Medication Management: No Issues/Barriers identified Advance Directives Advance Directives: Do you have an Advance Directive: N , 16:34 AD On File at [facility]: N 01/31/22, 16:34 Date Asked 03/21/25 03/21/25, 09:05 AD Date Reviewed COLST On File at [facility] COLST Date Scanned Code Status Resuscitation Status Full Code Portal Pt does not currently have a portal and education provided: Yes Insurance Coverage/Financial Issues Insurance: Medicare Part A & B - [id number] Care Team Visit Care Team Role Provider Type Alejandrina Bassett NP NURSE PRACTITIONER Mita Merlos Primary Care Provider NON-[facility] STAFF PHYSICIAN Atul Peacock MD Emergency Provider [facility] STAFF PHYSICIAN Pedro Luis Gregory MD Admit Provider [facility] STAFF PHYSICIAN Attending Provider Discharge Potential Discharge Needs: PCP F/U Appt Anticipated Barriers to Discharge: Medical Status Patient/Family Education Needs: Review discharge instructions, discuss Ask Me Three Transportation: Private vehicle Plan: Anticipate, Leonarda will be discharged home, once medically cleared. She will follow up with her community providers, and discharge plan of care. She will be transported via private vehicle by her family. CM will continue to follow. Social Determinants of Health Screening Social Determinants of health last assessed in clinic: 03/22/25 Will the Patient Participate in the Screening?: Yes Do you worry about having a steady place to live?: no Problems where you live: no known problems In the past 12 months, have you had to go without electric, gas, oil or water in your home?: no 1. Within the past 12 months, we worried whether our food would run out before we got money to buy more.: Never true 2. Within the past 12 months, the food we bought just didn't last and we didn't have money to get more.: Never true Has lack of transportation kept you from medical appointments or from doing things needed for daily living?: no Has anyone in your life made you feel unsafe or unsupported?: no How hard is it for you to pay for the very basics like food, housing, medical care, and heating? Would you say it is:: Not hard at all Do you want help finding or keeping work or a job?: I do not need or want help If for any reason you need help with day-to-day activities such as bathing, preparing meals, shopping, managing finances, etc., do you get the help you need?: I could use a little more help How often do you feel lonely or isolated from those around you?: Never Do you speak a language other than Tajik at home?: No Does the patient want assistance with any of the above?: No Health Related Social Needs Health related social needs: problems with daily activities (Z73.9) [facility] All Active Problems (Updated 03/22/25 @ 10:40 by Alejandrina Bassett NP) Acute exacerbation of chronic obstructive pulmonary disease (Acute) ALEXIA (acute kidney injury) (Acute) Hypercarbia (Acute) Elevated troponin (Acute) Hypoxemia (Acute) Severe sepsis (Acute) Discharge planning issues (Acute) On deep vein thrombosis (DVT) prophylaxis (Acute) Community acquired pneumonia (Acute) ALEXIA (acute kidney injury) (Acute) Elevated troponin (Acute) COPD (chronic obstructive pulmonary disease) (Chronic) Acute on chronic hypoxic respiratory failure (Acute) Social History Smoking/Tobacco Use Status: Current every day Tobacco Type: cigarettes Smoking risk assessment performed?: Yes Alcohol Intake: never Drug use: Never Substance use type: does not use Housing: house Do you feel safe at home: Yes Do you feel safe in your relationship?: Yes Readmission Within the Past 30 Days Yes or No: No
--- NOTE | 2025-03-22 10:36 | W.PM.PROGNOT ---
Date of Service Date of service: 03/22/25 Time of Service: 10:36 Assessment and Plan Assessment and plan (1) Severe sepsis: Status: Acute Assessment and plan: WBC up to 17 from 13, suspect due to steroids received as clinically feeling improved and hemodynamically stable Source respiratory Lactic 2.1 Continue day 2/5 ceftriaxone and azithromycin Blood cultures negative to date (2) Community acquired pneumonia: Status: Acute Assessment and plan: Was on Augmentin then doxycycline and seems to have failed Tx Mucinex, benzonatate, nebs and as above (3) Acute hypoxic respiratory failure: Status: Resolved Assessment and plan: Oxygen has been weaned off in the setting of CAP and Hx of COPD- whichis most likely exacerbated- methylprednisolone to oral prednisone in AM (4) Elevated troponin: Status: Acute Assessment and plan: In the setting of acute hypoxic respiratory failure from COPD exacerbation/CAP and chronic kidney disease No chest pain or acute ischemic EKG changes (5) ALEXIA (acute kidney injury): Status: Acute Assessment and plan: baseline 1.4- avoid nephrotoxic drugs, renal dosing as needed. (6) COPD (chronic obstructive pulmonary disease): Status: Chronic Assessment and plan: on home medicine (7) On deep vein thrombosis (DVT) prophylaxis: Status: Acute Assessment and plan: On LMWH (8) Discharge planning issues: Status: Acute Assessment and plan: Home when medically stable HH PT as per recommendation Discussed with Dr. Gregory Subjective Subjective Patient reports: no new complaints, feels better, tolerating liquids well, tolerating a regular diet, voiding w/o difficulty and afebrile Interval history since last seen: Has been weaned off oxygen shortness of breath improving especially while at rest but still having shortness of breath with activity. She is eating and drinking. She is voiding without difficulty. Exam Narrative Exam Narrative: Elderly female of stated age chronically ill-appearing head is atraumatic eyes nonicteric noninjected oral mucosa slightly dry neck full range of motion no JVD cardiovascular regular rate and rhythm respirations are even and unlabored diminished throughout no rhonchi or coarse breath sounds noted abdomen benign moves all extremities equally skin is ashen warm and dry neurologic she is awake alert oriented no focal deficits psychiatric appropriate mood and affect Objective Last Vital Signs Temp 36.2 C L 03/22/25 07:26 Pulse 91 H 03/22/25 07:26 Resp 18 03/22/25 07:26 BP 141/68 H 03/22/25 07:26 Pulse Ox 96 03/22/25 09:03 Laboratory Results - last 24 hr 03/21/25 03/21/25 03/21/25 10:16 12:17 17:04 WBC RBC Hgb Hct MCV MCH MCHC RDW Plt Count MPV Sodium Potassium Chloride Carbon Dioxide Anion Gap BUN Creatinine Est GFR (CKD-EPI 2020) Glucose Calcium Magnesium Troponin I 77 H* 182 H* 521 H* NT-Pro-B Natriuret Pep 171 Procalcitonin 03/21/25 03/22/25 03/22/25 18:06 06:20 06:31 WBC 17.93 H RBC 4.07 Hgb 13.9 Hct 39.4 MCV 97 H MCH 34.2 H MCHC 35.3 RDW 12.2 Plt Count 189 MPV 9.9 Sodium 140 Potassium 4.7 Chloride 105 Carbon Dioxide 26.1 Anion Gap 8.9 BUN 28 H Creatinine 1.3 H Est GFR (CKD-EPI 2020) 42.62 Glucose 125 H Calcium 9.0 Magnesium 1.6 L Troponin I 619 H* NT-Pro-B Natriuret Pep Procalcitonin < 0.10 Time Spent with Patient Time Spent with Patient: 35-49 minutes Time was spent: preparing to see the patient(eg.review tests), obtaining and/or reviewing separately otained hiistory, ordering medications,tests, procedures, indepentently interpreting results and counseling the patient
[2025-03-22] MEDS: cefTRIAXone 2 GM/50 ML BAG IVPB (11:17)
[2025-03-22] MEDS: AZITHROMYCIN 250 MG in Normal Saline 250 ML IVPB (12:26)
[2025-03-22] MEDS: Enoxaparin 40 MG/0.4 ML SYR SC (13:56)
[2025-03-23] VITALS (16 sets, daily range): BP systolic 103–128; BP diastolic 50–93; PULSE 55–89; RESP 5–18; TEMP 36.2–36.8; O2SAT 93–98
[2025-03-23] MEDS: Albuterol/Ipratropium 3 ML UPD VIAL UPD ×3 (05:56→18:03)
[2025-03-23] MEDS: Nicotine 21 MG/24 HR PATCH TD (08:31)
[2025-03-23] MEDS: Aspirin E.C. 81 MG TABEC PO (08:31)
[2025-03-23] MEDS: Benzonatate 100 MG CAP PO ×3 (08:31→20:40)
[2025-03-23] MEDS: Carvedilol 6.25 MG TAB PO ×2 (08:32→20:40)
[2025-03-23] MEDS: predniSONE 20 MG TAB 40 MG PO (08:32)
[2025-03-23] MEDS: guaiFENesin 600 MG TABCR PO ×2 (08:32→20:40)
[2025-03-23] MEDS: Normal Saline Flush 10 ML SYR IVP ×2 (08:32→20:40)
[2025-03-23] MEDS: cefTRIAXone 2 GM/50 ML BAG IVPB (10:07)
[2025-03-23] MEDS: AZITHROMYCIN 250 MG in Normal Saline 250 ML IVPB (12:01)
--- NOTE | 2025-03-23 13:32 | W.PM.PROGNOT ---
Date of Service Date of service: 03/23/25 Time of Service: 13:32 Assessment and Plan Assessment and plan (1) Severe sepsis: Status: Acute Assessment and plan: WBC up to 17 from 13, suspect due to steroids received as clinically feeling improved and hemodynamically stable Source respiratory Lactic 2.1 Continue day 2/5 ceftriaxone and azithromycin Blood cultures negative to date 04/02/25 no new labs, check cbc/cmp in am (2) Community acquired pneumonia: Status: Acute Assessment and plan: Was on Augmentin then doxycycline and seems to have failed Tx Mucinex, benzonatate, nebs and as above (3) Acute hypoxic respiratory failure: Status: Resolved Assessment and plan: Oxygen has been weaned off in the setting of CAP and Hx of COPD- whichis most likely exacerbated- methylprednisolone to oral prednisone in AM 03/23/25 pt is on prednisone 40mg daily (4) Elevated troponin: Status: Acute Assessment and plan: In the setting of acute hypoxic respiratory failure from COPD exacerbation/CAP and chronic kidney disease No chest pain or acute ischemic EKG changes 03/23/25 recheck in am. No chest pain endorsed (5) ALEXIA (acute kidney injury): Status: Acute Assessment and plan: baseline 1.4- avoid nephrotoxic drugs, renal dosing as needed. (6) COPD (chronic obstructive pulmonary disease): Status: Chronic Assessment and plan: on home medicine (7) On deep vein thrombosis (DVT) prophylaxis: Status: Acute Assessment and plan: On LMWH (8) Discharge planning issues: Status: Acute Assessment and plan: Home when medically stable HH PT as per recommendation Discussed with Dr. Gregory (9) Endometrial hyperplasia: Status: Acute Assessment and plan: found on ct incidentally. Will try to order vaginal usn as inpatient MPRESSION: 1. No evidence of acute pulmonary emboli nor pulmonary infarction. No acute pulmonary findings. No pleural effusions. 2. Cirrhotic appearing liver. No neoplastic appearing liver masses. No ascites. 3. There is some skin thickening and subcutaneous edema over the anterior aspect of the pannus. May indicate cellulitis. There is no drainable fluid collection in the subcutaneous fat. No significant anterior abdominal wall hernias. 4. No evidence of appendicitis nor diverticulitis. 5. Thickened endometrium. Should be further studied with ultrasound to rule out endometrial neoplasm. No abnormal adnexal findings. Bilateral tubal ligation clips. 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 Left hip unremarkable. Subjective Subjective Interval history since last seen: Pt without complaint. States respiratory status has improved. Pt states her TALIA is close to baseline POC d/w pt/family as well as bedside nurse during MDR Exam Narrative Exam Narrative: Elderly female of stated age chronically ill-appearing head is atraumatic eyes nonicteric noninjected oral mucosa slightly dry neck full range of motion no JVD cardiovascular regular rate and rhythm respirations are even and unlabored diminished throughout no rhonchi or coarse breath sounds noted abdomen benign moves all extremities equally skin is ashen warm and dry neurologic she is awake alert oriented no focal deficits psychiatric appropriate mood and affect 2plusLEE bilat Objective Last Vital Signs Temp 36.8 C 03/23/25 11:00 Pulse 79 03/23/25 12:55 Resp 15 03/23/25 11:00 BP 105/93 H 03/23/25 11:00 Pulse Ox 93 03/23/25 12:48 Time Spent with Patient Time Spent with Patient: 35-49 minutes Time was spent: preparing to see the patient(eg.review tests), obtaining and/or reviewing separately otained hiistory, ordering medications,tests, procedures, referring, communicating with other health respiratory care program director, indepentently interpreting results, counseling the patient and care coordination
[2025-03-23] MEDS: Enoxaparin 40 MG/0.4 ML SYR SC (14:04)
[2025-03-24] VITALS (9 sets, daily range): BP systolic 114–153; BP diastolic 57–86; PULSE 70–88; RESP 3–18; TEMP 36.1–36.4; O2SAT 91–96
[2025-03-24] MEDS: Albuterol/Ipratropium 3 ML UPD VIAL UPD ×2 (00:03→06:23)
[2025-03-24 06:40] LABS: Abs Immature Grans 0.11 10^3/uL (0.0-0.06); Absolute Monocyte Count 1.23 10^3/uL (0.1-0.8); Basophils % 0.2 %; HCT 37.9 % (36.0-46.0); HGB 12.9 g/dL (11.2-15.7); Immature Grans % 0.6 %; Lymphocytes % 11.3 %; MCH 32.9 pg (27.0-33.0); MCV 97 fL (80-95); MPV 10.1 fL (8.0-11.0); Monocytes % 6.4 %; Neutrophils % 81.5 %; Platelet Count 205 10^3/uL (130-400); RBC 3.92 10^6/uL (3.93-5.22); RDW 12.3 % (11.7-14.6); RDW-SD 43.8 fL; WBC 19.16 10^3/uL (4.4-10.8)
[2025-03-24 06:46] LABS: Absolute Basophil Count 0.04 10^3/uL (0.0-0.2); Absolute Lymphocyte Count 2.17 10^3/uL (1.2-3.4); Absolute Neutrophil Count 15.62 10^3/uL (1.2-6.7)
[2025-03-24 07:04] LABS: ALT 87 U/L (14-59); AST 111 U/L (15-37); Albumin 2.8 g/dL (3.4-5.0); Alkaline Phosphatase 97 U/L (46-116); Anion Gap 6.9 mmol/L (3-11); BUN 33 mg/dL (7-18); Bilirubin, Total 1.4 mg/dL (0.2-1.0); CO2 26.1 mmol/L (21.0-32.0); CREATININE 1.2 mg/dL (0.55-1.02); Calcium 9.1 mg/dL (8.5-10.1); Chloride 107 mmol/L (98-107); Estimated GFR 46.91 (mL/min/1.73m2); Glucose 93 mg/dL (74-106); Potassium 4.5 mmol/L (3.5-5.1); Sodium 140 mmol/L (136-145); Total Protein 6.3 g/dL (6.4-8.2)
[2025-03-24 07:09] LABS: Troponin I 123 ng/L (<or=51)
[2025-03-24] MEDS: cefTRIAXone 2 GM/50 ML BAG IVPB (08:09)
[2025-03-24] MEDS: Benzonatate 100 MG CAP PO ×2 (08:11→13:57)
[2025-03-24] MEDS: Carvedilol 6.25 MG TAB PO (08:11)
[2025-03-24] MEDS: Aspirin E.C. 81 MG TABEC PO (08:11)
[2025-03-24] MEDS: predniSONE 20 MG TAB 40 MG PO (08:11)
[2025-03-24] MEDS: Spironolactone 25 MG TAB PO (08:12)
[2025-03-24] MEDS: Furosemide 20 MG TAB PO (08:12)
[2025-03-24] MEDS: Nicotine 21 MG/24 HR PATCH TD (08:12)
[2025-03-24] MEDS: guaiFENesin 600 MG TABCR PO (08:12)
[2025-03-24] MEDS: Normal Saline Flush 10 ML SYR IVP (08:13)
--- NOTE | 2025-03-24 09:22 | W.PM.PROGNOT ---
Date of Service Date of service: 03/24/25 Time of Service: 09:22 Assessment and Plan Assessment and plan (1) Severe sepsis: Status: Acute Assessment and plan: WBC up to 17 from 13, suspect due to steroids received as clinically feeling improved and hemodynamically stable Source respiratory Lactic 2.1 Continue day 2/5 ceftriaxone and azithromycin Blood cultures negative to date 04/02/25 no new labs, check cbc/cmp in am (2) Community acquired pneumonia: Status: Acute Assessment and plan: Was on Augmentin then doxycycline and seems to have failed Tx Mucinex, benzonatate, nebs and as above (3) Acute hypoxic respiratory failure: Status: Resolved Assessment and plan: Oxygen has been weaned off in the setting of CAP and Hx of COPD- whichis most likely exacerbated- methylprednisolone to oral prednisone in AM 03/23/25 pt is on prednisone 40mg daily (4) Elevated troponin: Status: Acute Assessment and plan: In the setting of acute hypoxic respiratory failure from COPD exacerbation/CAP and chronic kidney disease No chest pain or acute ischemic EKG changes 03/23/25 recheck in am. No chest pain endorsed (5) ALEXIA (acute kidney injury): Status: Acute Assessment and plan: baseline 1.4- avoid nephrotoxic drugs, renal dosing as needed. (6) COPD (chronic obstructive pulmonary disease): Status: Chronic Assessment and plan: on home medicine (7) On deep vein thrombosis (DVT) prophylaxis: Status: Acute Assessment and plan: On LMWH (8) Endometrial hyperplasia: Status: Acute Assessment and plan: Records Management Technician comsult ordered and pending- found on CT incidentally Might need vaginal US as inpatient VS outpatient IMPRESSION: 1. No evidence of acute pulmonary emboli nor pulmonary infarction. No acute pulmonary findings. No pleural effusions. 2. Cirrhotic appearing liver. No neoplastic appearing liver masses. No ascites. 3. There is some skin thickening and subcutaneous edema over the anterior aspect of the pannus. May indicate cellulitis. There is no drainable fluid collection in the subcutaneous fat. No significant anterior abdominal wall hernias. 4. No evidence of appendicitis nor diverticulitis. 5. Thickened endometrium. Should be further studied with ultrasound to rule out endometrial neoplasm. No abnormal adnexal findings. Bilateral tubal ligation clips. 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 Left hip unremarkable. (9) Discharge planning issues: Status: Acute Assessment and plan: Home when medically stable HH PT as per recommendation Discussed with Dr. Low Objective Last Vital Signs Temp 36.2 C L 03/24/25 07:35 Pulse 88 03/24/25 07:35 Resp 15 03/24/25 07:35 BP 142/57 H 03/24/25 07:35 Pulse Ox 95 03/24/25 07:59 Laboratory Results - last 24 hr 03/24/25 05:58 WBC 19.16 H RBC 3.92 L Hgb 12.9 Hct 37.9 MCV 97 H MCH 32.9 MCHC 34.0 RDW 12.3 Plt Count 205 MPV 10.1 Immature Gran % 0.6 Neutrophils % 81.5 Lymphocytes % 11.3 Monocytes % 6.4 Eosinophils % 0.0 Basophils % 0.2 Nucleated RBC % 0.0 Absolute Neutrophils 15.62 H Absolute Lymphocytes 2.17 Absolute Monocytes 1.23 H Absolute Eosinophils 0.00 Absolute Basophils 0.04 Sodium 140 Potassium 4.5 Chloride 107 Carbon Dioxide 26.1 Anion Gap 6.9 BUN 33 H Creatinine 1.2 H Est GFR (CKD-EPI 2020) 46.91 Glucose 93 Calcium 9.1 Total Bilirubin 1.4 H AST 111 H ALT 87 H Alkaline Phosphatase 97 Troponin I 123 H* Total Protein 6.3 L Albumin 2.8 L
--- NOTE | 2025-03-24 10:11 | PDOC.CMPRO ---
Date of service: 03/24/25 Time of Service: 11:44 Care Management Progress Note Progress Note Text Progress Note Text: Trini was sitting in her chair and visiting with her and son, when CM arrived. This morning she received a call from [facility], to discuss services that she might qualify for. Trini states, she is wanting to go home, but would like to feel better first. CM communicated with PT & provider - Trini will likely need a lift assist into the home, which is 13 stairs up; CM will coordinate this upon discharge. CM will continue to follow. Discharge Potential Discharge Needs: PT Evaluation and PCP F/U Appt Anticipated Barriers to Discharge: Medical Status Patient/Family Education Needs: Review discharge instructions, discuss Ask Me Three Transportation: Private vehicle Plan: Anticipate, Leonarda will be discharged home, possibly with new services of PT and [facility] program, once medically cleared. She will follow up with her community providers, and discharge plan of care. She will be transported via private vehicle by her family. CM will continue to follow. Social Determinants of Health Screening Social Determinants of health last assessed in clinic: 03/24/25 Will the Patient Participate in the Screening?: Yes Do you worry about having a steady place to live?: no Problems where you live: no known problems In the past 12 months, have you had to go without electric, gas, oil or water in your home?: no 1. Within the past 12 months, we worried whether our food would run out before we got money to buy more.: Never true 2. Within the past 12 months, the food we bought just didn't last and we didn't have money to get more.: Never true Has lack of transportation kept you from medical appointments or from doing things needed for daily living?: no Has anyone in your life made you feel unsafe or unsupported?: no How hard is it for you to pay for the very basics like food, housing, medical care, and heating? Would you say it is:: Not hard at all Do you want help finding or keeping work or a job?: I do not need or want help If for any reason you need help with day-to-day activities such as bathing, preparing meals, shopping, managing finances, etc., do you get the help you need?: I could use a little more help How often do you feel lonely or isolated from those around you?: Never Do you speak a language other than [place] at home?: No Does the patient want assistance with any of the above?: No Health Related Social Needs Health related social needs: problems with daily activities (Z73.9) Anticipated HH Services Anticipated HH Services at Discharge [facility] Needed, PT.
--- NOTE | 2025-03-24 11:32 | PT.INIE ---
PT Notes Visit Reasons: Acute on Chronic Hyposix Resp Fail. Severe Sepsis, Physical Therapy Inpatient Initial Evaluation Date: 03/24/2025 Referring Doctor:Harper Lai NP PT Orders: PT CONSULT: Safety Consult for discharge, evaluation for assistive device. Precautions: telemetry, Standard. fall risk Patient Profile/Admitting Diagnosis: Patient is 74-year-old female presented to the ED with shortness of breath on 03/21/2025. Patient diagnosed with sepsis community-acquired pneumonia acute hypoxic respiratory failure in the setting of COPD and CAP. Patient with elevated troponins acute kidney injury. Patient admitted for further medical management and PT consult placed. PMHX: Acute hypoxic respiratory failure (Acute) Acute exacerbation of chronic obstructive pulmonary disease (Acute) ALEXIA (acute kidney injury) (Acute) Hypercarbia (Acute) Elevated troponin (Acute) Hypoxemia (Acute) Severe sepsis (Acute) Discharge planning issues (Acute) On deep vein thrombosis (DVT) prophylaxis (Acute) Community acquired pneumonia (Acute) ALEXIA (acute kidney injury) (Acute) Elevated troponin (Acute) COPD (chronic obstructive pulmonary disease) (Chronic) Acute on chronic hypoxic respiratory failure (Acute) Social History/Home Situation: Lives alone in single-family home with 13 steps to enter with bilateral rails. Patient independent without device at home although has FWW and cane. Patient independent ADLs. Patient current tobacco use until this hospitalization. Equipment Owned/DME: FWW, cane Subjective: Patient reports she was very active until recently. Patient enjoys gardening taking care of her animals. She reports now she is exhausted walking down 13 steps therefore has not been able to provide and participate in these activities. Objective: [] General Observation: Boisterous female seated in bedside chair with bilateral lower extremities elevated and family member visiting Mental Status: [] Alert and oriented x 4, cooperative, able to follow all instructions, agreeable to participate in eval Pain:right hip 3/10 with ambulation ROM: [] BUE: WFL Right Lower Extremity: WFL despite pain Left Lower Extremity: WFL Strength: [] BUE: 5/5 Right Lower Extremity: Hip flexion 3 -/5, hip abduction 2+/5, hip extension 3 -/5, knee 3+/5, ankle 3+/5 Left Lower Extremity: Grossly 4/5 Sensation: Intact Bed Mobility/Transfers: [] Supine to sit independent Sit to stand independent Stand to sit independent Bed to chair independent with and without FWW Gait: Ambulated 75 feet with FWW with standby assist distance limited by dyspnea and right hip pain. Patient required cues for pacing to reduce speed and take stand rest. Stairs: Patient declined at this time Balance: [] Static Sitting: Normal Dynamic Sitting: [] Good Static Standing: Normal Dynamic Standing: Good Special Tests: [] Mobility Limitations Standardized Measure [] [facility] AM-PAC 6 clicks Basic Mobility Inpatient Short Form: [] Raw Score: 20 CMS Score: 35.83% Informed Consent/Education: Patient instructed in purpose of PT consult. Treatment: 09759 Patient and family instructed in benefits of standing rest on stairs and during functional mobility for pacing including pursed lip breathing. Discussed potential use of chair on landing for rest. Or sitting on step if able to safely turn and sit. Patient perform functional mobility with and without FWW and simulated living area/kitchen short distance ambulation cues for pacing. Patient instructed and agreed that FWW provided support for reducing right hip pain. Assessment: Patient is 74-year-old female presenting with poor energy conservation/breath control techniques to allow her to perform tasks at prior level without dyspnea. Patient declined to participate in stair assessment; discussed with patient potential use of lift assist into home for energy conservation purposes due to 13 stairs to enter. Patient presents with clinical signs and symptoms consistent with current/admitting diagnoses that have resulted to mobility limitations, gait instability, generalized weakness, and impairment of motor control as demonstrated by the following impairment level findings: 1. Decreased strength to BLE R>L major muscle groups 2. Impaired standing balance 3. Limitation of joint range of motion in right hip 4. Pain right hip 5. Impaired functional activity tolerance and standing 6. Impaired breath control and pacing/dyspnea on exertion Impairments are contributing to the following functional limitations: 1. Inability to safely ambulate without assistive device 2. Increase completion time for mobility ADL performance 3. Increased fall risk 4. difficult performing stairs safely Patient is assessed as a moderate complexity based on the following: History: 74-year-old female with impairment level findings, functional limitations, and past medical history as indicated above Examination: Demonstrable impairment in strength, balance, and mobility level with underlying impairments and functional limitations as documented above Presentation: evolving Decision Making:moderate Goals: 1. Independent ambulation with FWW greater than 150 feet 2. Supervision 13 steps with 2 rails with standing rest as needed for breath control/pacing Plan of Care/Treatment Plan: 1-2x/day, 7 days/week x 1 week. Plan of care has been reviewed with the SERVICE PROMOTER SALESPERSON providing the service under Physical Therapy direction. Initiate Physical Therapy intervention for strengthening, bed mobility, transfers, gait, stairs, balance training, use of assistive device. DISCHARGE RECOMMENDATIONS: Home with HHPT and better breathers program when medically appropriate. Pt will need lift assist into home. TREATMENT CODE/TIME: 53741, [id number] Thank you for the opportunity to participate in the care of this patient. Tena Corcoran, PT [facility]
[2025-03-24] MEDS: AZITHROMYCIN 250 MG in Normal Saline 250 ML IVPB (12:10)
--- NOTE | 2025-03-24 13:22 | DSE_ITS ---
Date of service: 03/24/25 Time of Service: 14:35 DS: Diagnosis Discharge Diagnosis (1) Severe sepsis: Status: Acute (2) Community acquired pneumonia: Status: Acute (3) Acute hypoxic respiratory failure: Status: Resolved (4) Elevated troponin: Status: Acute (5) ALEXIA (acute kidney injury): Status: Acute (6) COPD (chronic obstructive pulmonary disease): Status: Chronic (7) On deep vein thrombosis (DVT) prophylaxis: Status: Acute (8) Endometrial hyperplasia: Status: Acute (9) Discharge planning issues: Status: Acute Discharge Plan Disposition Patient Disposition: Home W/Home Health Services Condition: Improving Discharge Details Reason For Visit: Acute on Chronic Hyposix Resp Fail. Severe Sepsis, Admit Date/Time: 03/24/25 10:10 Admit Provider: Pedro Luis Gregory Attending Provider: Pedro Luis Gregory Primary Care Provider: Mita Merlos Hospital Course Hospital Course: This 74-year-old female patient with a PMHx of 96 pack year nicotine dependence, non- oxygen dependent COPD w/o official PFT, [place] FU[place]E presented to the ED on 03/21/25 via EMS for evaluation of worsening shortness of breath s/p failed outpatient treatment for pneumonia with Augmentin and then with doxycy hall. Oxygen at 4 l/min initiated by EMS d/t sat in the low 80's. Workup in the ED was positive for leukocytosis at 13, VBG lactate of of 2.1, Cr 1.5 and trending up positive troponins without ACS findings as per eKG ans symtomatology and negative PE as per CTA and negative BNP. The patient was admitted to the medical surgical floor by the hospitalist team for severe sepsis, acute hypoxic respiratory failure,ALEXIA, failed outpatient CAP treatment and exacerbation of COPD. The patient was treated with steroids, nebulizers, ceftriaxone and azithromycin IV. [facility] cardiology consult resulted in minimal delta elevation with recommendation not to trend further unless symptomatic with most likely demand ischemia, troponin max 619 on03/21/25 and 123 today. Limited/suboptimal echocardiogram showed grossly normal LV RV aand function, non-plethoric IVC . Physical Therapy recommendation for discharge: Home with home health physical therapy and better breathers program when medically appropriate. The patient will need a lift-assist into home. Home health nursing will also be ordered on discharge. On the day of discharge the patient was hemodynamically stable without oxygen supplementation. Scripts electronically sent to pharmacy. Please follow-up with your primary care within 7 days of discharge. Cardiology referral completed. Finding of endometrial hyperplasia on CT addressed with outpatient ultrasound ordered and gynecology referral completed. Recommendations for PCP follow-up: Cardiology referral- MPI recommendation as per [facility] cardiology MPI recommendation as per [facility] cardiology - But patient deemed no to be a candidate at the time of discharge as per cardiology services as [facility] Endometrial hyperplasia - Chronic venous insufficiency work-up Discussed with Dr. Low Recommendations for Follow Up Recommended tests to be ordered by follow up provider: Outpatient MPI as per ca rdiology or as per PCP Home Meds and New Rx's Prescriptions: New benzonatate 100 mg Capsule 100 mg PO TID Qty: 15 0RF docusate sodium [Colace] 100 mg Capsule 100 mg PO BID PRNQty: 6 0RF guaifenesin [Mucus Relief ER] 600 mg Tablet Extended Release 12hr 600 mg PO BID Qty: 10 0RF nicotine 21 mg/24 hr Patch 24 Hour 21 mg transdermal DAILY Qty: 28 0RF prednisone 20 mg Tablet 40 mg PO DAILY Qty: 6 0RF azithromycin 250 mg tablet 250 mg PO DAILY Qty: 3 0RF cefpodoxime 200 mg tablet 200 mg PO Q12H Qty: 6 0RF Rx Instructions: must administer with a meal/food Continued carvedilol 12.5 mg tablet 6.25 mg PO BID fluticasone furoate-vilanterol [Breo Ellipta] 100-25 mcg/dose blister with device 1 inh inhalation DAILY AM furosemide 20 mg tablet 20 mg PO .qotherday Patient Comments: TAKE ONE TABLET BY MOUTH EVERY OTHER DAY spironolactone 25 mg tablet 25 mg PO .qotherday Patient Comments: TAKE ONE TABLET BY MOUTH EVERY other DAY Discontinued doxycycline hyclate 100 mg capsule 100 mg PO BID Patient Comments: TAKE ONE CAPSULE BY MOUTH TWICE A DAY FOR 7 DAYS Discharge Instructions Stand Alone Forms: Nursing Discharge Form Referrals: vish figueredo [Other] Bianca Rawls MD [ [facility] STAFF PHYSICIAN, Cardiology] Referral Note: Troponin elevation - Type II ischemia- MPI recommended by [facility] Cardiology on 03/24/25 -wanted outpatient f/u /testing Mita Merlos [Primary Care Provider, Medicine] - 03/31/25 2:00 pm Referral Note: Follow -up within 7 days of discharge please Saima Salvador, DO [OSTEOPATHIC DOCTOR, Obstetrics] Referral Note: The endometrium appears slightly thickened for this age group. Should be further studied with ultrasound Activity:: Activity as Tolerated Equipment/Supplies:: Walker Diet:: heart healthy Discharge Orders Discharge Orders: Discharge Order (Routine); Ordered 03/24/25 Ordered By: Harper Lai Other Ambulatory Orders: US pelvis & transvaginal (Routine) Timeframe: 10 Day Facility: [facility] - Location: DIAGNOSTIC IMAGING Ordered By: Harper Lai DS: Summary Time Spent with Patient providing and/or coordinating discharge services: Greater than 30 minutes Status at Discharge Functional status at discharge: uses cane/walker Overall status at discharge: patient is progressing back to baseline Mental Status: mental status grossly normal Speech and Movement: speech and movement normal Mood: congruent mood Affect: normal affect Quality:SDOH Health Related Social Needs: Health related social needs daily activities Exam Narrative Exam Narrative: 74 years old female patient looking older than stated age, alert and oriented X4, no focal neuro deficit, minimal RLL diffused expiratory s/p cough, diminished left base, unlabored otherwise at rest, , S1, S2, no murmur, + LE pitting edema L> R, abd is not distended, soft and non-tender,, no bladder distention Psych Mental Status: mental status grossly normal Speech and Movement: speech and movement normal Mood: congruent mood Affect: normal affect DS: Data Vitals/I&O Vitals and I&O: Vital Signs Temperature 36.1 C L 03/24/25 11:48 Temperature Source Temporal Artery Scan 03/24/25 11:48 Pulse 71 03/24/25 11:48 Pulse 77 03/21/25 10:20 Respiratory Rate 14 03/24/25 11:48 Respiratory Effort Short of Breath 03/21/25 13:47 Respiratory Depth Shallow 03/21/25 13:47 Respiratory Pattern Normal 03/21/25 13:47 Blood Pressure 148/62 H 03/24/25 11:48 Blood Pressure Mean 90 03/24/25 11:48 Pulse Oximetry 94 03/24/25 11:48 Oxygen Delivery Method Room Air 03/24/25 11:48 Oxygen Flow Rate 0 03/24/25 11:48 Pain Level 0 03/24/25 03:43 Comment RN notified 03/24/25 11:48 Intake & Output 03/23/25 03/24/25 03/24/25 23:59 11:59 23:59 Intake Total 500 / 800 225 / 225 Balance 500 / 800 225 / 225 Weight 78.3 kg Intake: IV 250 / 300 225 / 225 Oral 250 / 500 Other: Comment voided pt voided moderate amount into toilet. Data Completed and Pending Labs on day of discharge: Labs from last 24 hours 03/24/25 05:58 WBC 19.16 H RBC 3.92 L Hgb 12.9 Hct 37.9 MCV 97 H MCH 32.9 MCHC 34.0 RDW 12.3 Plt Count 205 MPV 10.1 Immature Gran % 0.6 Neutrophils % 81.5 Lymphocytes % 11.3 Monocytes % 6.4 Eosinophils % 0.0 Basophils % 0.2 Nucleated RBC % 0.0 Absolute Neutrophils 15.62 H Absolute Lymphocytes 2.17 Absolute Monocytes 1.23 H Absolute Eosinophils 0.00 Absolute Basophils 0.04 Sodium 140 Potassium 4.5 Chloride 107 Carbon Dioxide 26.1 Anion Gap 6.9 BUN 33 H Creatinine 1.2 H Est GFR (CKD-EPI 2020) 46.91 Glucose 93 Calcium 9.1 Total Bilirubin 1.4 H AST 111 H ALT 87 H Alkaline Phosphatase 97 Troponin I 123 H* Total Protein 6.3 L Albumin 2.8 L Preliminary micro results at discharge 03/21/25 13:05 Blood Blood Culture - Preliminary NO GROWTH 48 HOURS 03/21/25 13:20 Blood Blood Culture - Preliminary NO GROWTH 48 HOURS PFSH All Active Problems (Updated 03/23/25 @ 13:39 by Ronald Low MD) Endometrial hyperplasia (Acute) Acute exacerbation of chronic obstructive pulmonary disease (Acute) ALEXIA (acute kidney injury) (Acute) Hypercarbia (Acute) Elevated troponin (Acute) Hypoxemia (Acute) Severe sepsis (Acute) Discharge planning issues (Acute) On deep vein thrombosis (DVT) prophylaxis (Acute) Community acquired pneumonia (Acute) ALEXIA (acute kidney injury) (Acute) Elevated troponin (Acute) COPD (chronic obstructive pulmonary disease) (Chronic) Acute on chronic hypoxic respiratory failure (Acute) Social History Smoking/Tobacco Use Status: Current every day Tobacco Type: cigarettes Smoking risk assessment performed?: Yes Alcohol Intake: never Drug use: Never Substance use type: does not use Housing: house Do you feel safe at home: Yes Do you feel safe in your relationship?: Yes Time Spent with Patient Time Spent with Patient: 70-84 minutes4 Time was spent: preparing to see the patient(eg.review tests), obtaining and/or reviewing separately otained hiistory, ordering medications,tests, procedures, referring, communicating with other health lawn care technician, indepentently interpreting results, counseling the patient and care coordination
[2025-03-24] MEDS: Enoxaparin 40 MG/0.4 ML SYR SC (13:57)
--- NOTE | 2025-03-24 14:02 | PDOC.CMDIS ---
Date of service: 03/24/25 Time of Service: 14:03 LACE Index Scoring Tool Questions: Length of Stay (in days): 3 Was the patient admitted via the E.D.?: Yes Comorbidities: Chronic Pulmonary Disease E.D. Visits: 1 Answers: Total Score: 9 Risk of Readmission: Low Risk Care Management Discharge Plan Reason for Hospitalization: Acute on Chronic Hypoxic resp. failure, severe sepsis Discharge Plan: Leonarda will be discharged home with new services of PT and Better Breathers program. She will follow up with her community providers, and discharge plan of care. She will be transported via private vehicle by her family. PT recommends a lift assist, patient declined the assist. CM offered local fire departments phone number. Patient is aware of the process of the lift assist, if desired. Patient/Family Education Needs: Review of discharge instructions, activity, limitations, and plan of care. Discuss Ask Me Three. Services Needed at Discharge: Home Health Care Services (PT/Better Breathers) SDOH Health Related Social Needs: Health related social needs daily activities
[2025-03-24 14:53] LABS: Lab Add On Test DONE
--- NOTE | 2025-03-24 15:38 | PDOC.HHF2F ---
Home Health Referral Home Health Orders Clinical synopsis of why skilled professionals are needed: This 74-year-old female patient with a PMHx of 96 pack year nicotine dependence, non- oxygen dependent COPD w/o official PFT, [place] FU[place]E presented to the ED on 03/21/25 via EMS for evaluation of worsening shortness of breath s/p failed outpatient treatment for pneumonia with Augmentin and then with doxycycline. Oxygen at 4 l/min initiated by EMS d/t sat in the low 80's. Workup in the ED was positive for leukocytosis at 13, VBG lactate of of 2.1, Cr 1.5 and trending up positive troponins without ACS findings as per eKG ans symtomatology and negative PE as per CTA and negative BNP. The patient was admitted to the medical surgical floor by the hospitalist team for severe sepsis, acute hypoxic respiratory failure,ALEXIA, failed outpatient CAP treatment and exacerbation of COPD. The patient was treated with steroids, nebulizers, ceftriaxone and azithromycin IV. [facility] cardiology consult resulted in minimal delta elevation with recommendation not to trend further unless symptomatic with most likely demand ischemia, troponin max 619 on03/21/25 and 123 today. Limited/suboptimal echocardiogram showed grossly normal LV RV aand function, non-plethoric IVC . Physical Therapy recommendation for discharge: Home with home health physical therapy and better breathers program when medically appropriate. The patient will need a lift-assist into home. Home health nursing will also be ordered on discharge. On the day of discharge the patient was hemodynamically stable without oxygen supplementation. Scripts electronically sent to pharmacy. Please follow-up with your primary care within 7 days of discharge. Cardiology referral completed. Finding of endometrial hyperplasia on CT addressed with outpatient ultrasound ordered and gynecology referral completed. Recommendations for PCP follow-up: Cardiology referral- MPI recommendation as per [facility] cardiology MPI recommendation as per [facility] cardiology - But patient deemed no to be a candidate at the time of discharge as per cardiology services as [facility] Endometrial hyperplasia - Chronic venous insufficiency work-up Discussed with Dr. Low Registered Nurse: Check all that apply Assess for exacerbation of medical condition, instruct patient/caregivers on signs and symptoms to report for early detection: Ordered Physical Therapist: Check all that apply Increase strength & endurance for safe mobility at home: Ordered To design/establish home maintenance program: Ordered Fall reduction therapy program for patient with history of frequent falls: Ordered Home safety evaluation and teaching/gait training including stair management (if applicable): Ordered Better Breathing Program: Ordered Home Bound Status Requires the aid of supportive device (check all that apply): Walker Encounter Date and Reason: I certify that a FTF encounter for this patient was performed on March 24, 2025 and that such encounter was related to the primary reason the patient requires home health services. The encounter was conducted in the following manner: By me as the certifying physician, INSIDE SALES ACCOUNT EXECUTIVE, PA or By an inpatient physician, INSIDE SALES ACCOUNT EXECUTIVE or PA during an inpatient stay who communicated findings to me, Certification And Authentication I certify that I composed the above information based on my clinical judgment relating to this patient's medical condition and, if applicable, clinical findings communicated to me by the NPP or inpatient physician who performed the FTF encounter. Name of Provider that will be monitoring home health services: Mita Merlos
== END 2025-03-24 16:48 | disposition home health service (06) | DRG 871 ==
LOC: ER 10:02 → MS 12:20
PROVIDERS: Hospitalist; Nurse Practitioner Acute Care; Admitting Provider Family Medicine; Emergency Provider Student in an Organized Health Care Education/Training Program; PCP Internal Medicine; Responsible Provider Nurse Practitioner Acute Care; Visit Provider Family Medicine
DX: A41.9 Sepsis, unspecified organism (principal); J18.9 Pneumonia, unspecified organism; R65.20 Severe sepsis without septic shock; N17.9 Acute kidney failure, unspecified; J44.0 Chronic obstructive pulmonary disease with (acute) lower respiratory infection; Z79.899 Other long term (current) drug therapy; N85.00 Endometrial hyperplasia, unspecified; J96.21 Acute and chronic respiratory failure with hypoxia; J44.1 Chronic obstructive pulmonary disease with (acute) exacerbation; R74.8 Abnormal levels of other serum enzymes; K75.81 Nonalcoholic steatohepatitis (NASH); F17.210 Nicotine dependence, cigarettes, uncomplicated; N18.9 Chronic kidney disease, unspecified
CPT/HCPCS: 00123; 36415; 71275; 74177; 80048; 80053; 82805; 84145; 85027; 87040; 87637; 93005; 94640; 96361; 96365; 96366; 96367; 96372; 97162; 97530; 99285; J1650; 71046; 83605; 83735; 83880; 84484; 85025; 93010; 93306; 94664; 94667; 94668; 94760; 99223; 99233; 99239; G0378; J0456; J0696; J3475; J7512; J7620

== ENCOUNTER → 2025-03-25 08:00 | Outpatient (BNVA) | payer MEDICARE, SELFPAY | PROVIDERS: PCP Internal Medicine; Referring Provider Internal Medicine; Visit Provider Internal Medicine Cardiovascular Disease ==

== ENCOUNTER 2025-04-01 17:56 | Emergency (ER) | payer MEDICARE, SELFPAY ==
[2025-04-01] VITALS (24 sets, daily range): BP systolic 71–147; BP diastolic 37–62; PULSE 66–77; RESP 11–19; TEMP 37.1; O2SAT 95–99
--- NOTE | 2025-04-01 18:19 | W.ED.GENAD ---
Discharge Plan Disposition Patient Disposition: Home Discharge Details Clinical Impression: Elevated liver function tests, Cirrhosis of liver Primary Care Provider: Mita Merlos ED Provider: Julia Zaidi Home Meds and New Rx's Prescriptions: No Action carvedilol 12.5 mg tablet 6.25 mg PO BID fluticasone furoate-vilanterol [Breo Ellipta] 100-25 mcg/dose blister with device 1 inh inhalation DAILY AM furosemide 20 mg tablet 20 mg PO .qotherday Patient Comments: TAKE ONE TABLET BY MOUTH EVERY OTHER DAY spironolactone 25 mg tablet 25 mg PO .qotherday Patient Comments: TAKE ONE TABLET BY MOUTH EVERY other DAY docusate sodium [Colace] 100 mg Capsule 100 mg PO BID PRNQty: 6 0RF nicotine 21 mg/24 hr Patch 24 Hour 21 mg transdermal DAILY Qty: 28 0RF Discharge Instructions Additional Instructions: Please call your primary care provider's office first thing in the morning to schedule follow-up appointment. An outpatient ultrasound, repeat labs, and specialist referral may be indicated. You do have some labs pending, such as an acute hepatitis panel; these results should be available on your portal and sent to your primary care provider as well. Stay well-hydrated, drinking plenty of fluids throughout the day. Please avoid use of Tylenol. Return to emergency care if you develop new abdominal pain, vomiting, difficulty breathing, chest pains, dizziness, or if you are very worried and need to be rechecked again immediately. Referrals: Mita Merlos [Primary Care Provider, Medicine] [facility] General Date/Time Provider Initiated Documentation: 04/01/25 17:56. HPI Narrative: Leonarda is a 74-year-old female who presents to the emergency department for evaluation of abnormal labs. Primary physician follow-up and blood test yesterday showed elevated liver function tests, bilirubin, and elevated neutrophils; she was called and advised to seek further eval in ED. She is accompanied by her Geronimo. Recently hospitalized for pneumonia with sepsis and concomitant ALEXIA. She was discharged a week ago, says she is feeling significantly better but is still experiencing cough (productive of clear/yellowish sputum, no blood), runny nose, intermittant frontal sinus pressure. Completed course of prednisone and azithromycin/cefpodoxime 2 days ago. She did have an echocardiogram during hospital stay, has cardiology follow-up scheduled, as well as nuclear stress test. Energy levels fluctuate; felt fatigued yesterday after long drive and using walker. Light breakfast today, energy remains low. Today experienced an episode of lightheadedness/woozy feeling and nausea at home around [id number], lasted approx 30 minutes. This was accompanied by a feeling of discomfort in the left side of her neck and shoulder, which she says happens whenever she is starting to get sick; denies associated chest pains, shortness of breath, or headache. She did check her, BP 97/55, lower than usual 101-112. Symptoms began around noon today while indoors. Rested on couch due to feeling unwell; says that symptoms resolved spontaneously. She did put on a nicotine patch this morning after 2 days without nicotine, thinks this may be contributory. She does admit to decreased fluid intake today, says she does not like drinking water. She did hydrate with Gatorade after an episode of dizziness. Denies recent headaches, sore throat, worsening cough, shortness of breath, vomiting, abdominal pain, change in bowel or bladder function, dysuria, black/tarry or bloody stools, skin lesions/sores. She does admit to increased urine output attributed to Lasix use, has had to use a diaper instead of her usual pad due to increased incontinence. Normal bowel movement yesterday, none today. PMH significant for: COPD (well-managed with daily Breo, no home oxygen required); liver issues since 1990, including jaundice and elevated liver enzymes due to excessive acetaminophen use. Liver biopsy normal. Related Data Home Medications ?Medication ?Instructions ?Recorded ?Confirmed carvedilol 12.5 mg tablet 6.25 mg PO BID 02/11/22 04/01/25 fluticasone furoate 100 1 inh inhalation DAILY AM 02/11/22 04/01/25 mcg-vilanterol 25 mcg/dose inhalation powder (Breo Ellipta) furosemide 20 mg tablet 20 mg PO .qotherday 03/21/25 04/01/25 spironolactone 25 mg tablet 25 mg PO .qotherday 03/21/25 04/01/25 docusate sodium 100 mg capsule 100 mg PO BID PRN #6 caps 03/24/25 04/01/25 (Colace) nicotine 21 mg/24 hr daily 21 mg transdermal DAILY #28 ea 03/24/25 04/01/25 transdermal patch Previous Rx's ?Medication ?Instructions ?Recorded docusate sodium 100 mg capsule 100 mg PO BID PRN #6 caps 03/24/25 (Colace) nicotine 21 mg/24 hr daily 21 mg transdermal DAILY #28 ea 03/24/25 transdermal patch Allergies Allergy/AdvReac Type Severity Reaction Status Date / Time Sulfa (Sulfonamide Allergy Severe Anaphylaxis Unverified 04/01/25 18:07 Antibiotics) acetaminophen Allergy Unknown Unknown Unverified 04/01/25 18:07 oxycodone AdvReac Mild Nausea Verified 04/01/25 18:07 General Stated Complaint: Recheck KAREN: 4 Exam Narrative Exam Narrative: General Appearance: Normal. Leonarda is alert and oriented, no acute distress. Vital signs: Within normal limits. HEENT: Moist mucous membranes. Oropharynx clear, no obvious tonsillar hypertrophy/erythema. No cervical or submandibular lymphadenopathy. Respiratory: Clear breath sounds bilaterally, no wheezing or crackles. No cough during exam. Cardiovascular: Normal heart sounds, no murmurs. Regular rate and rhythm. Gastrointestinal: Mild tenderness to palpation to left upper quadrant. Abdomen soft, normoactive bowel sounds, no guarding or rigidity. Extremities: Mild pedal edema noted to left lower leg from knee down, improved from previous per patient Skin: No rashes or lesions. Psychiatric: Normal. Course Vital Signs Vital signs: Vital Signs Temperature 37.1 C 04/01/25 17:58 Pulse 66 04/01/25 17:58 Respiratory Rate 16 04/01/25 17:58 Blood Pressure 103/52 L 04/01/25 17:58 Pulse Oximetry 96 04/01/25 17:58 Temperature 37.1 C 04/01/25 17:58 Pulse 66 04/01/25 17:58 Respiratory Rate 16 04/01/25 17:58 Blood Pressure 103/52 L 04/01/25 17:58 Pulse Oximetry 96 04/01/25 17:58 Pain Level 0 04/01/25 17:58 Medical Decision Making Initial Assessment: 74-year-old female with abnormal labs, recent pneumonia hospitalization, low blood pressure with episode of lightheadedness. Overall physical exam reassuring, pt does not appear jaundiced Differential Diagnosis includes but is not limited to: Cardiac arrhythmia, dehydration, nicotine patch reaction, occult infection such as UTI, persistent pneumonia, electrolyte imbalance, hepatitis, liver dysfunction, neutrophilia secondary to prednisone use, thyroid dysfunction, gastritis, pancreatitis, cholecystitis/choledocholithiasis, cholangitis. Low suspicion for ACS, however will check troponins due to episode of lightheadedness associated with left shoulder pain I independently interpreted the following tests: EKG reassuring, normal sinus rhythm rate 74, normal intervals, no changes consistent with acute ischemia. CBC notable for leukocytosis, 17.7 today versus 17.4 on 03/31/2025. Likely due to prednisone use. BUN to creatinine ratio slightly elevated at 31: 1.4, likely mild dehydration. LFTs elevated today, total bili 4.1 with direct bili 1.1. AST and ALT 50, 85 respectively. Alk phos 112. GGT 93. Lipase, TSH, troponins (10, 10), PT/INR largely reassuring. UA reassuring, negative bilirubin and 0.2 urobilinogen. Results not consistent with UTI CT chest/abdomen/pelvis performed, notable for resolved pneumonia, cirrhosis of the liver, gallbladder sludge, and prominent spleen. As patient sees PCP in [facility], I was only able to access previous labs via [facility], no office visit note available. Leonarda reports that she had liver ultrasound performed Memorial Day of this year, has yearly ultrasounds performed for monitoring. Overall workup today reassuring. Unclear etiology of elevated LFTs, likely related to cirrhosis. No indication at this time for further emergency evaluation/inpatient management. Patient is overall well-appearing, recommend continued close follow-up with PCP for outpatient monitoring and specialist referral. Acute hepatitis panel is a send out lab, results pending at time of discharge. Disposition: - Discharge: Home, stable, no immediate admission needed. - Follow-Up: Primary care physician for lab review and management. Patient consented to the use of [facility] Imaging Data Radiologic Study: Radiologist's impression: TECHNIQUE: Imaging protocol: Computed tomography of the abdomen and pelvis without contrast. 3D rendering (Not supervised by radiologist): MIP and/or 3D reconstructed images were created by the technologist. COMPARISON: CT CHEST PE ABD PELVIS W 03/21/2025 11:56 AM FINDINGS: Liver: Lobulated contour of the liver consistent with cirrhosis. Gallbladder and biliary ducts: Sludge identified within the gallbladder. Pancreas: Normal. No ductal dilation. Spleen: Prominent spleen. Adrenal glands: Normal. No mass. Kidneys and ureters: Bilateral Bosniak type 1 renal cysts the largest of which measures 2.5 cm on the right. No further imaging follow-up is necessary. Stomach and bowel: Unremarkable. No obstruction. No mucosal thickening. Appendix: No evidence of appendicitis. Intraperitoneal space: Unremarkable. No free air. No significant fluid collection. Vasculature: Unremarkable. No abdominal aortic aneurysm. Lymph nodes: Unremarkable. No enlarged lymph nodes. Urinary bladder: Unremarkable as visualized. Reproductive: Bilateral tubal ligations. Somewhat bulbous and lobulated appearance of the uterus which could be on the basis of fibroid involvement. Ultrasound examination of the pelvis can be performed for confirmation. Bones/joints: Osteoarthritic changes identified in the lumbar spine. Soft tissues: Unremarkable. IMPRESSION: 1. Cirrhosis of the liver. 2. Sludge within the gallbladder. 3. Probable fibroid involvement of the uterus as detailed above. 4. Prominent spleen suggesting some element of portal hypertension. Please correlate clinically. Radiologic Study #2: Radiologist's impression: PROCEDURE INFORMATION: Exam: CT Chest Without Contrast; Diagnostic Exam date and time: 04/01/2025 7:34 PM Age: 74 years old Clinical indication: Left-sided and other: Recovering from pna, luq pain TECHNIQUE: Imaging protocol: Diagnostic computed tomography of the chest without contrast. 3D rendering (Not supervised by radiologist): MIP and/or 3D reconstructed images were created by the technologist. COMPARISON: CT CHEST PE ABD PELVIS W 03/21/2025 11:56 AM FINDINGS: Lungs: Bilateral lower lobe subsegmental atelectatic changes are identified. Pleural spaces: Unremarkable. No pneumothorax. No pleural effusion. Heart: Unremarkable. No cardiomegaly. No pericardial effusion. Lymph nodes: Unremarkable. No enlarged lymph nodes. Vasculature: Unremarkable. No aortic aneurysm. Bones/joints: Unremarkable. No acute fracture. Soft tissues: Unremarkable. IMPRESSION: Normal unenhanced CT scan of the chest Quality:SDOH Health Related Social Needs: Health related social needs daily activities PFSH All Active Problems (Updated 04/01/25 @ 20:59 by Julia Vera) Cirrhosis of liver (Acute) Elevated liver function tests (Acute) Endometrial hyperplasia (Acute) Acute exacerbation of chronic obstructive pulmonary disease (Acute) ALEXIA (acute kidney injury) (Acute) Hypercarbia (Acute) Elevated troponin (Acute) Hypoxemia (Acute) Community acquired pneumonia (Acute) COPD (chronic obstructive pulmonary disease) (Chronic) Acute on chronic hypoxic respiratory failure (Acute) Social History Smoking/Tobacco Use Status: Former Tobacco Use Quit Date: 03/21/25 Smoking risk assessment performed?: Yes Alcohol Intake: never Drug use: Never Substance use type: does not use Housing: house Do you feel safe at home: Yes Do you feel safe in your relationship?: Yes
--- NOTE | 2025-04-01 18:30 | RT.EKG_ITS ---
APPROVED REPORT Exam: Resting ECG Reason for Exam: shoulder pain, dizziness Patient Location: E HR:74 bpm ECG Measurements Heart Rate 74 AXIS HI 121 P 59 QRSd 98 QRS 65 QT 424 T 42 QTc 471 Conclusion Sinus rhythm 74 normal axis no stemi
[2025-04-01 19:03] LABS: Abs Immature Grans 0.12 10^3/uL (0.0-0.06); Absolute Lymphocyte Count 1.93 10^3/uL (1.2-3.4); Absolute Monocyte Count 1.45 10^3/uL (0.1-0.8); Absolute Neutrophil Count 14.02 10^3/uL (1.2-6.7); Basophils % 0.2 %; Eosinophils % 0.8 %; HCT 39.7 % (36.0-46.0); HGB 13.7 g/dL (11.2-15.7); Immature Grans % 0.7 %; Lymphocytes % 10.9 %; MCH 33.4 pg (27.0-33.0); MCHC 34.5 % (32.0-36.0); MCV 97 fL (80-95); MPV 9.8 fL (8.0-11.0); Monocytes % 8.2 %; Neutrophils % 79.2 %; Platelet Count 209 10^3/uL (130-400); RDW 12.5 % (11.7-14.6); RDW-SD 44.3 fL
[2025-04-01 19:04] LABS: Absolute Basophil Count 0.04 10^3/uL (0.0-0.2); Absolute Eosinophil Count 0.14 10^3/uL (0.0-0.7)
[2025-04-01] MEDS: Normal Saline 500 ML 1000 ML IV (19:13)
[2025-04-01 19:22] LABS: ALT 85 U/L (14-59); AST 50 U/L (15-37); Albumin 2.9 g/dL (3.4-5.0); Alkaline Phosphatase 112 U/L (46-116); Anion Gap 8.4 mmol/L (3-11); BUN 31 mg/dL (7-18); Bilirubin, Total 4.1 mg/dL (0.2-1.0); CO2 26.6 mmol/L (21.0-32.0); CREATININE 1.4 mg/dL (0.55-1.02); Calcium 9.2 mg/dL (8.5-10.1); Chloride 101 mmol/L (98-107); Estimated GFR 38.99 (mL/min/1.73m2); Glucose 131 mg/dL (74-106); Lipase 69 U/L (<78); Magnesium 1.7 mg/dL (1.8-2.4); Potassium 4.7 mmol/L (3.5-5.1); Sodium 136 mmol/L (136-145); Total Protein 6.6 g/dL (6.4-8.2)
[2025-04-01 19:27] LABS: INR 1.2 (0.9-1.1); PTT Activated 23.2 sec (20.6-30.2); Prothrombin Time 11.8 sec (9.1-11.1)
--- NOTE | 2025-04-01 19:30 | DI.CT_ITS ---
Exam(s) CT CHEST/ABD/PEL WO EXAM: CT CHEST/ABD/PEL WO CLINICAL HISTORY: recovering from PNA, LUQ pain. TECHNIQUE: Imaging Protocol: Axial computed tomography images with coronal and sagittal reformatted images were created and reviewed. Computer aided detection (CAD) was utilized. CONTRAST MATERIAL: Intravenous: noncontrast Oral: no COMPARISON: CT CT CHEST PE ABD PELVIS W from 03/21/2025 FINDINGS: CHEST: Pulmonary parenchyma: Mild atelectasis inferior right middle lobe. No consolidation. No dominant measurable mass. Mild emphysematous changes. Tracheobronchial tree: No bronchiectasis. No mucous plugging.No bronchial wall thickening. Pleura: No effusion or pneumothorax. Mediastinum: Within normal limits. Pulmonary arteries: No visible emboli. Cardiovascular: Normal heart size. Minimal coronary artery calcifications. No pericardial effusion. Thoracic aorta non-dilated. Mild atherosclerotic changes. Bones: Unremarkable for age. No lytic or blastic lesions.No compression fractures. Soft tissues: Unremarkable. ABDOMEN and PELVIS: Liver: Cirrhotic appearance. Normal density. No suspicious mass. Gallbladder and biliary tract: Sludge faintly visible. No calcified stones or wall thickening. No biliary dilatation. Pancreas: Normal density, no abnormal calcifications or inflammatory process. Spleen: Normal. Kidneys: Normal size, contour and axis. No radiodense stones. No obstructive uropathy. Simple renal cysts again noted. No suspicious masses seen. Adrenal glands: No masses seen. Vasculature: Abdominal portion non-dilated. Varicosities noted in the left upper quadrant. Lymph nodes: Within normal limits. Soft tissues: Unremarkable. Bladder: Unremarkable. Bowel: No obstruction or bowel wall thickening. Peritoneal cavity: No ascites. No focal collection. No mesenteric inflammatory response. No free air. Bones: Unremarkable scoliosis and degenerative changes in the spine. Severe degenerative changes in the right hip. Uterus mildly enlarged which could indicate fibroids. Endometrial stripe not visible on current exam. Tubal ligation clips. IMPRESSION: No acute abnormality in the chest, abdomen or pelvis. Cirrhotic liver again noted. Gallbladder sludge. No evidence of acute cholecystitis. The preliminary [facility] report was reviewed. RADIATION DOSE DELIVERED: 542.03mGy.cm Total DLP DATA REPOSITORY: All CT scans at this facility are submitted to the National Radiology Data Registry (NRDR) Dose Index Registry (DIR) with the [employer] ([employer]). RADIATION OPTIMIZATION: All CT scans at this facility use at least one of these dose optimization techniques: automated exposure control; mA and/or kV adjustment per patient size (includes targeted exams where dose is matched to clinical indication); or iterative reconstruction.
[2025-04-01 19:33] LABS: TSH (W/Ref FT4) 2.26 uIU/mL (0.36-3.74); Troponin I 10 ng/L (<or=51)
[2025-04-01 19:55] LABS: Bilirubin, Direct 1.1 mg/dL (0.0-0.2)
[2025-04-01 20:21] LABS: Troponin I 10 ng/L (<or=51)
--- NOTE | 2025-04-01 20:34 | DI.[facility]_ITS ---
PROCEDURE INFORMATION: Exam: CT Chest Without Contrast; Diagnostic Exam date and time: 04/01/2025 7:34 PM Age: 74 years old Clinical indication: Left-sided and other: Recovering from pna, luq pain TECHNIQUE: Imaging protocol: Diagnostic computed tomography of the chest without contrast. 3D rendering (Not supervised by radiologist): MIP and/or 3D reconstructed images were created by the technologist. COMPARISON: CT CHEST PE ABD PELVIS W 03/21/2025 11:56 AM FINDINGS: Lungs: Bilateral lower lobe subsegmental atelectatic changes are identified. Pleural spaces: Unremarkable. No pneumothorax. No pleural effusion. Heart: Unremarkable. No cardiomegaly. No pericardial effusion. Lymph nodes: Unremarkable. No enlarged lymph nodes. Vasculature: Unremarkable. No aortic aneurysm. Bones/joints: Unremarkable. No acute fracture. Soft tissues: Unremarkable. IMPRESSION: Normal unenhanced CT scan of the chest. PROCEDURE INFORMATION: Exam: CT Abdomen And Pelvis Without Contrast Exam date and time: 04/01/2025 7:34 PM Age: 74 years old Clinical indication: Left-sided and other: Recovering from pna, luq pain TECHNIQUE: Imaging protocol: Computed tomography of the abdomen and pelvis without contrast. 3D rendering (Not supervised by radiologist): MIP and/or 3D reconstructed images were created by the technologist. COMPARISON: CT CHEST PE ABD PELVIS W 03/21/2025 11:56 AM FINDINGS: Liver: Lobulated contour of the liver consistent with cirrhosis. Gallbladder and biliary ducts: Sludge identified within the gallbladder. Pancreas: Normal. No ductal dilation. Spleen: Prominent spleen. Adrenal glands: Normal. No mass. Kidneys and ureters: Bilateral Bosniak type 1 renal cysts the largest of which measures 2.5 cm on the right. No further imaging follow-up is necessary. Stomach and bowel: Unremarkable. No obstruction. No mucosal thickening. Appendix: No evidence of appendicitis. Intraperitoneal space: Unremarkable. No free air. No significant fluid collection. Vasculature: Unremarkable. No abdominal aortic aneurysm. Lymph nodes: Unremarkable. No enlarged lymph nodes. Urinary bladder: Unremarkable as visualized. Reproductive: Bilateral tubal ligations. Somewhat bulbous and lobulated appearance of the uterus which could be on the basis of fibroid involvement. Ultrasound examination of the pelvis can be performed for confirmation. Bones/joints: Osteoarthritic changes identified in the lumbar spine. Soft tissues: Unremarkable. IMPRESSION: 1. Cirrhosis of the liver. 2. Sludge within the gallbladder. 3. Probable fibroid involvement of the uterus as detailed above. 4. Prominent spleen suggesting some element of portal hypertension. Please correlate clinically. Dictated and Authenticated by: Christiano Enrique MD. Orderin Slime Dumont MD
[2025-04-01 20:37] LABS: GGT 93 U/L (5-55)
[2025-04-01 20:53] LABS: Bilirubin Negative (Negative); Blood Negative (Negative); Clarity Clear (Clear); Glucose Negative (Negative); Ketones Negative (Negative); Leukocyte Esterase Negative (Negative); Nitrite Negative (Negative); Specific Gravity 1.015 (1.005-1.025); Urobilinogen 0.2 mg/dL (Up to 0.2); pH 5.5 (5-8)
[2025-04-03 12:52] LABS: Hepatitis A Antibody IgM Negative (Negative); Hepatitis B Core Antibody Negative (Negative); Hepatitis B surface Ag Negative (Negative); Hepatitis C Ab w Rflx HCV PCR Negative (Negative)
== END 2025-04-01 21:14 | disposition home or self-care (01) ==
PROVIDERS: Emergency Provider Nurse Practitioner Family; PCP Internal Medicine
DX: R79.89 Other specified abnormal findings of blood chemistry (principal); K46.9 Unspecified abdominal hernia without obstruction or gangrene; J44.9 Chronic obstructive pulmonary disease, unspecified; Z87.891 Personal history of nicotine dependence
CPT/HCPCS: 36415; 71250; 80053; 83690; 86704; 86709; 86803; 87340; 93005; 96360; 99285; 74176; 81003; 82248; 82977; 83735; 84443; 84484; 85025; 85610; 85730; 93010

== ENCOUNTER 2025-04-23 01:29 | Outpatient (CLI) | payer MEDICARE, SELFPAY ==
--- NOTE | 2025-04-23 08:00 | DI.US_ITS ---
Exam(s) US PELVIS TRANSVAGINAL EXAM: US PELVIS TRANSVAGINAL CLINICAL HISTORY: f/u endometrial thickening on CT-US recommended TECHNIQUE: Ultrasound of the pelvis was performed both transabdominal and transvaginal. COMPARISON: CT CT CHEST/ABD/PEL WO from 04/01/2025 FINDINGS: Transabdominal pelvic ultrasound was performed. Transvaginal study was apparently not performed in this 74-year-old patient. UTERUS: Anteverted and measures 9 cm length by 5 cm AP x 5.6 cm wide There appears to be an anterior myometrial fibroid measuring approximately 3.6 x 2.9 x 3.3 cm Endometrial thickness measures 10 mm. Which is thickened for this age group. There is no fluid in the endometrial canal. CERVIX: Nabothian cysts are noted RIGHT OVARY: Not visualized LEFT OVARY: Also not able to be visualized CUL-DE-SAC: No free fluid evident. IMPRESSION: 1. Anterior myometrial fibroid measuring 3.6 x 2.9 x 3.3 cm 2. Endometrium is thickened for this age group measuring 10 mm. Requires close follow-up to rule out neoplasm. There is no fluid in the endometrial canal 3. Ovaries are not able to be identified in this 84-year-old patient. 4. There is no free fluid in the pelvis DATA REPOSITORY:
== END 2025-04-23 01:49 ==
LOC: DI 01:29
PROVIDERS: PCP Internal Medicine; Visit Provider Obstetrics & Gynecology
DX: N85.00 Endometrial hyperplasia, unspecified (principal)
CPT/HCPCS: 76830; 76856

== ENCOUNTER 2025-05-02 13:56 | Outpatient (CLI) | payer MEDICARE, SELFPAY ==
--- NOTE | 2025-05-02 13:45 | RT.EKG_ITS ---
APPROVED REPORT Exam: Resting ECG Reason for Exam: elevated troponin s/p hospital discharge Patient Location: O HR:86 bpm ECG Measurements Heart Rate 86 AXIS DE 124 P 51 QRSd 104 QRS 72 QT 368 T 62 QTc 440 Conclusion Sinus rhythm...normal P axis, V-rate 50- 99 Baseline wander in lead(s) II,III,aVF Normal Electrocardiogram
== END 2025-05-02 13:57 | disposition home or self-care (01) ==
LOC: DI.CARD 13:58
PROVIDERS: PCP Internal Medicine; Referring Provider Nurse Practitioner Acute Care; Visit Provider Internal Medicine Cardiovascular Disease
DX: R79.89 Other specified abnormal findings of blood chemistry (principal)
CPT/HCPCS: 93010

== ENCOUNTER → 2025-05-02 13:56 | Outpatient (BNVA) | payer MEDICARE, SELFPAY | PROVIDERS: PCP Internal Medicine; Referring Provider Nurse Practitioner Acute Care; Visit Provider Internal Medicine Cardiovascular Disease | DX: J44.9 Chronic obstructive pulmonary disease, unspecified (principal); R79.89 Other specified abnormal findings of blood chemistry | CPT/HCPCS: 99214; 93005 ==